=== PATIENT | male | born 1960 | race American Indian/Alaskan Native ===

== ENCOUNTER 2018-03-07 16:16 | Emergency (ER) | payer OTHER ==
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
[2018-03-07] MEDS ORDERED: MOTRIN PO ONE (17:37)
[2018-03-07] MEDS ORDERED: CATAPRES PO ONE (17:38)
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
[2018-03-07 19:15] VITALS: BP 179/90
== END 2018-03-07 19:49 | disposition home or self-care (01) ==
LOC: ED 16:16
DX: S16.1XXA Strain of muscle, fascia and tendon at neck level, initial encounter (principal); M54.5 Low back pain; M54.2 Cervicalgia; I10 Essential (primary) hypertension; E11.9 Type 2 diabetes mellitus without complications; Z79.4 Long term (current) use of insulin; V44.5XXA Car driver injured in collision with heavy transport vehicle or bus in traffic accident, initial encounter; Y93.89 Activity, other specified; Y99.8 Other external cause status; Y92.481 Parking lot as the place of occurrence of the external cause
CPT/HCPCS: 72040; 72100; 99283

== ENCOUNTER 2020-09-20 15:45 | Inpatient (IN) | payer MEDICAID, OTHER ==
--- NOTE | 2020-09-20 17:18 | Event Note ---
ED Screening Note ED Screening Note: SOB that began 4 days ago hx of CHF, afib, has a defibrillator states he has been out of his medication for two months states he is supposed to take entresto, lasix, carvedilol, xarelto, potassium no leg swelling states he has abd distension cannot lay flat no allergies to meds former smoker 3 years ago This initial assessment/diagnostic orders/clinical plan/treatment(s) is/are subject to change based on patients health status, clinical progression and re- assessment by fellow clinical providers in the ED. Further treatment and workup at subsequent clinical providers discretion. Patient/guardian urged not to elope from the ED as their condition may be serious if not clinically assessed and managed. Initial orders include: cp protocol
--- NOTE | 2020-09-20 18:40 | XRay Report ---
CHEST 2 VIEWS INDICATION / CLINICAL INFORMATION: Chest Pain. COMPARISON: None available. FINDINGS: SUPPORT DEVICES: Left subclavian ICD lead HEART / MEDIASTINUM: Borderline enlarged LUNGS / PLEURA: Mild increased interstitial markings No pneumothorax. ADDITIONAL FINDINGS: No significant additional findings. IMPRESSION: 1. Probable mild CHF Signer Name: Stevenson Pedersen MD Signed: 09/20/2020 6:36 PM Workstation Name: [id number]
[2020-09-20 19:23] LABS: Basophils # (Auto) 0.1 K/mm3 (0.0-0.1); Eosinophils # (Auto) 0.1 K/mm3 (0.0-0.4); Hematocrit 43.6 % (35.5-45.6); Hemoglobin 14.5 gm/dl (11.8-15.2); Lymphocytes # (Auto) 1.7 K/mm3 (1.2-5.4); Lymphocytes % (Auto) 17.1 % (13.4-35.0); Mean Corpuscular HGB Conc 33 % (32-34); Mean Corpuscular Volume 85 fl (84-94); Monocytes # (Auto) 1.2 K/mm3 (0.0-0.8); Monocytes % (Auto) 12.1 % (0.0-7.3); Platelet Count 263 K/mm3 (140-440); Red Blood Count 5.13 M/mm3 (3.65-5.03); Red Cell Distribution Width 15.5 % (13.2-15.2)
[2020-09-20 19:33] LABS: INR 1.21 (0.87-1.13)
[2020-09-20 19:34] LABS: Partial Thromboplastin Time 28.5 Sec. (24.2-36.6)
[2020-09-20 19:49] LABS: Albumin 4.3 g/dL (3.9-5); Calcium 9.4 mg/dL (8.4-10.2)
[2020-09-20] MEDS ORDERED: ASPIRIN 325 MG TAB PO ONE (19:54)
[2020-09-20 20:08] LABS: Chol/HDL Ratio 4.56 %
--- NOTE | 2020-09-20 21:39 | Emergency Department Report ---
ED Shortness of Breath HPI - General Chief Complaint: Dyspnea/Respdistress Stated Complaint: SHORTNESS OF BREATH Time Seen by Provider: 09/20/20 17:17 Source: patient Mode of arrival: Wheelchair Limitations: No Limitations - History of Present Illness Initial Comments: 60-year-old male with a past medical history of CHF (intermittently compliant with Lasix), hypertension (intimately compliant with meds), diabetes (not currently on meds), and atrial fibrillation (noncompliant with Xarelto) presents to the hospital with complaints of progressively worsening shortness of breath for approximately 4 days. Present orthopnea, PND, and dyspnea on exertion with 5 to 8 pound weight gain with abdominal distention. Patient feels better since receiving supplemental oxygen in the ED occasional dry cough reported without fever, loss of taste of sense or smell, calf tenderness, chest pain. Patient states he feels like he is retaining fluid and suspects his likely secondary to his intermittent Lasix compliance and the fact that he ran out of several of his medications including Everardo since moving here June 2020. Patient did take 2 doses of Lasix 40 mg today (6 AM and noon) he does not currently have a local doctor. He does not take aspirin daily. Initial triage room air saturation 94% - Related Data Previous Rx's Medication Instructions Recorded Last Taken Type Insulin NPH/Regular [Novolin 70/30] 17 unit SQ BIDDIAB #1 vial 06/23/14 Unknown Rx Lancets [Glucocom Lancets] 1 each MC BID #1 box 06/23/14 Unknown Rx Lisinopril/Hydrochlorothiazide 1 each PO DAILY #30 tablet 06/23/14 Unknown Rx [Zestoretic 10-12.5 mg] Metoprolol [Lopressor TAB] 12.5 mg PO BID #60 tablet 06/23/14 Unknown Rx Syringe and Needle,Insulin,1Ml 1 each MC BID #1 box 06/23/14 Unknown Rx [Advocate Syringes] amLODIPine 10 mg PO DAILY #30 tab 06/23/14 Unknown Rx Amlodipine Besylate [Norvasc] 5 mg PO QDAY 30 Days #30 tablet 03/07/18 Unknown Rx Cyclobenzaprine [Flexeril] 10 mg PO TID PRN #15 tablet 03/07/18 Unknown Rx Ibuprofen [Motrin] 600 mg PO Q8H PRN #12 tablet 03/07/18 Unknown Rx carvediloL [Coreg] 25 mg PO BID 30 Days #60 tablet 03/07/18 Unknown Rx lisinopriL [Zestril TAB] 20 mg PO QDAY 30 Days #30 tablet 03/07/18 Unknown Rx Allergies Allergy/AdvReac Type Severity Reaction Status Date / Time No Known Allergies Allergy Unverified 06/22/14 19:54 ED Review of Systems ROS: Stated complaint: SHORTNESS OF BREATH Other details as noted in HPI Comment: All other systems reviewed and negative ED Past Medical Hx - Past Medical History Previous Medical History?: Yes Hx Hypertension: Yes Hx Congestive Heart Failure: Yes Hx Diabetes: Yes Additional medical history: 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 - Social History Smoking Status: Former Smoker Substance Use Type: None - Medications Home Medications: Home Medications Medication Instructions Recorded Confirmed Last Taken Type Insulin NPH/Regular [Novolin 70/30] 17 unit SQ BIDDIAB #1 vial 06/23/14 Unknown Rx Lancets [Glucocom Lancets] 1 each MC BID #1 box 06/23/14 Unknown Rx Lisinopril/Hydrochlorothiazide 1 each PO DAILY #30 tablet 06/23/14 Unknown Rx [Zestoretic 10-12.5 mg] Metoprolol [Lopressor TAB] 12.5 mg PO BID #60 tablet 06/23/14 Unknown Rx Syringe and Needle,Insulin,1Ml 1 each MC BID #1 box 06/23/14 Unknown Rx [Advocate Syringes] amLODIPine 10 mg PO DAILY #30 tab 06/23/14 Unknown Rx Amlodipine Besylate [Norvasc] 5 mg PO QDAY 30 Days #30 tablet 03/07/18 Unknown Rx Cyclobenzaprine [Flexeril] 10 mg PO TID PRN #15 tablet 03/07/18 Unknown Rx Ibuprofen [Motrin] 600 mg PO Q8H PRN #12 tablet 03/07/18 Unknown Rx carvediloL [Coreg] 25 mg PO BID 30 Days #60 tablet 03/07/18 Unknown Rx lisinopriL [Zestril TAB] 20 mg PO QDAY 30 Days #30 tablet 03/07/18 Unknown Rx ED Physical Exam - General Limitations: No Limitations - Other Other exam information: General: No acute distress Head: Atraumatic Eyes: normal appearance ENT: Moist mucous membranes Neck: Normal appearance, no midline tenderness Chest: Mild bibasilar crackles CV: Regular rate and rhythm Abdomen: Soft, normal bowel sounds, nontender, mild abdominal distention, no rebound or guarding Back: Normal inspection Extremity: Normal inspection, full range of motion, no calf tenderness or leg edema Neuro: Alert O x 3, no facial asymmetry, speech clear, no gross motor sensory deficit Psych: Appropriate behavior Skin: No rash ED Course Vital Signs 09/20/20 09/20/20 21:30 21:33 Pulse Rate 86 Respiratory 20 Rate Blood Pressure 168/107 O2 Sat by Pulse 98 98 Oximetry ED Medical Decision Making - Lab Data Result diagrams: 09/20/20 18:43 09/20/20 18:43 Lab Results 09/20/20 09/20/20 09/20/20 Range/Units 18:43 18:43 18:43 WBC 10.2 (4.5-11.0) K/mm3 RBC 5.13 H (3.65-5.03) M/mm3 Hgb 14.5 (11.8-15.2) gm/dl Hct 43.6 (35.5-45.6) % MCV 85 (84-94) fl MCH 28 (28-32) pg MCHC 33 (32-34) % RDW 15.5 H (13.2-15.2) % Plt Count 263 (140-440) K/mm3 Lymph % (Auto) 17.1 (13.4-35.0) % Hinds % (Auto) 12.1 H (0.0-7.3) % Eos % (Auto) 1.0 (0.0-4.3) % Baso % (Auto) 1.0 (0.0-1.8) % Lymph # (Auto) 1.7 (1.2-5.4) K/mm3 Hinds # (Auto) 1.2 H (0.0-0.8) K/mm3 Eos # (Auto) 0.1 (0.0-0.4) K/mm3 Baso # (Auto) 0.1 (0.0-0.1) K/mm3 Seg Neutrophils % 68.8 (40.0-70.0) % Seg Neutrophils # 7.0 (1.8-7.7) K/mm3 PT 15.3 H (12.2-14.9) Sec. INR 1.21 H (0.87-1.13) APTT 28.5 (24.2-36.6) Sec. Sodium 140 (137-145) mmol/L Potassium 4.0 (3.6-5.0) mmol/L Chloride 101.8 (98-107) mmol/L Carbon Dioxide 26 (22-30) mmol/L Anion Gap 16 mmol/L BUN 27 H (9-20) mg/dL Creatinine 1.7 H (0.8-1.3) mg/dL Estimated GFR 50 ml/min BUN/Creatinine Ratio 16 % Glucose 141 H (75-100) mg/dL Calcium 9.4 (8.4-10.2) mg/dL Total Bilirubin 1.00 (0.1-1.2) mg/dL AST 42 H (5-40) units/L ALT 65 H (7-56) units/L Alkaline Phosphatase 93 (35-129) units/L Troponin T 0.224 H* (0.00-0.029) ng/mL NT-Pro-B Natriuret Pep 3241 H (0-900) pg/mL Total Protein 7.8 (6.3-8.2) g/dL Albumin 4.3 (3.9-5) g/dL Albumin/Globulin Ratio 1.2 % Triglycerides 111 (2-149) mg/dL Cholesterol 219 H (50-199) mg/dL LDL Cholesterol Direct 165 H (50-130) mg/dL HDL Cholesterol 48 (40-59) mg/dL Cholesterol/HDL Ratio 4.56 % - EKG Data -: EKG Interpreted by Me (Left bundle branch block, left atrial enlargement) EKG shows normal: sinus rhythm, ST-T waves (No STEMI) Rate: normal - EKG Data When compared to previous EKG there are: changes noted (New left bundle branch) - Radiology Data Radiology results: report reviewed (cxr: mild chf) - Medical Decision Making 60-year male presents to the hospital with retention of fluid, dyspnea exertion, orthopnea, PND, and noncompliance with medications including diuretics. Physical exam, labs, and x-ray consistent with exacerbation of heart failure. Mild troponin elevation noted with history of mild elevation in troponin in the past as noted by previous lab values from 2013. Mild renal insufficiency noted today. Patient treated with IV Lasix 40 mg and aspirin. He does not endorse ch est pain. Repeat troponin is lower and value than initial and and therefore ongoing ischemic changes unlikely. Patient to be mated to hospital service for treatment with cardiology consultation Critical Care Time: No Critical care attestation.: If time is entered above; I have spent that time in minutes in the direct care of this critically ill patient, excluding procedure time. ED Disposition Clinical Impression: Elevated troponin I level, Chest pain, Uncontrolled hypertension, Renal insufficiency, Noncompliance with medication regimen, CHF exacerbation Disposition: OP ADMIT IP TO THIS HOSP Is pt being admited?: Yes Condition: Stable Instructions: Chest Pain (ED), Hypertension (ED) Time of Disposition: 21:46 (Dr Nowak/June)
[2020-09-20] MEDS ORDERED: FUROSEMIDE 40 MG/4 ML INJ IV ONE (21:43)
[2020-09-20] MEDS ORDERED: NITROGLYCERIN 0.4 MG TAB SUBL SL PRN (22:01)
[2020-09-20] MEDS ORDERED: MORPHINE 2 MG/1 ML INJ IV PRN (22:01)
[2020-09-20] MEDS ORDERED: ACETAMINOPHEN 325 MG TAB PO PRN (22:03)
[2020-09-20] MEDS ORDERED: DEXTROSE 50% IN WATER (25GM) 50 ML SYRINGE IV PRN (22:03)
[2020-09-20] MEDS ORDERED: oxyCODONE /ACETAMINOPHEN 5-325MG TAB PO PRN (22:03)
[2020-09-20] MEDS ORDERED: ALBUTEROL 2.5 MG/3 ML NEBU IH PRN (22:03)
--- NOTE | 2020-09-20 23:30 | History and Physical Report ---
History of Present Illness Date of examination: 09/20/20 Date of admission: 09/20/20 22:03 Chief complaint: abodominal swelling, sob History of present illness: 60-year-old -[place]ian male with history of A. fib, CHF, hypertension, and diabetes who presents to [facility] ED with complaints of abdominal swelling and shortness of breath x4 days. Patient states that he has gained approximately 5 to 8 pounds over the past week. He is unable to lay flat or walk up a flight of stairs without getting short of breath. Endorses abdominal distention, orthopnea and PND. Patient thinks his recent weight gain, abdominal distention, and dyspnea is due fluid buildup. Admits to having CHF, and has been off his meds since June 2020. Patient states his noncompliance with meds is due to insurance issues. His doctor is located in [place] and when he attempted to get a refill of his heart failure meds at a local [facility] here in [place] was told that he needs to return to the [facility] in order to fill the prescription. 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 Denies fever, chills, chest pain, headache, sore throat, nausea, vomiting, diarrhea, constipation, cough, hemoptysis, hematuria, melena, or recent sick c ontacts Past History Past Medical History: atrial fib, diabetes, heart failure, hypertension, other (DJD) Past Surgical History: No surgical history Social history: , Lives alone, full code. denies: smoking, alcohol abuse Family history: hypertension Medications and Allergies Allergies Allergy/AdvReac Type Severity Reaction Status Date / Time No Known Allergies Allergy Unverified 06/22/14 19:54 Home Medications Medication Instructions Recorded Confirmed Last Taken Type Insulin NPH/Regular [Novolin 70/30] 17 unit SQ BIDDIAB #1 vial 06/23/14 Unknown Rx Lancets [Glucocom Lancets] 1 each MC BID #1 box 06/23/14 Unknown Rx Lisinopril/Hydrochlorothiazide 1 each PO DAILY #30 tablet 06/23/14 Unknown Rx [Zestoretic 10-12.5 mg] Metoprolol [Lopressor TAB] 12.5 mg PO BID #60 tablet 06/23/14 Unknown Rx Syringe and Needle,Insulin,1Ml 1 each MC BID #1 box 06/23/14 Unknown Rx [Advocate Syringes] amLODIPine 10 mg PO DAILY #30 tab 06/23/14 Unknown Rx Amlodipine Besylate [Norvasc] 5 mg PO QDAY 30 Days #30 tablet 03/07/18 Unknown Rx Cyclobenzaprine [Flexeril] 10 mg PO TID PRN #15 tablet 03/07/18 Unknown Rx Ibuprofen [Motrin] 600 mg PO Q8H PRN #12 tablet 03/07/18 Unknown Rx carvediloL [Coreg] 25 mg PO BID 30 Days #60 tablet 03/07/18 Unknown Rx lisinopriL [Zestril TAB] 20 mg PO QDAY 30 Days #30 tablet 03/07/18 Unknown Rx Active Meds: Active Medications Acetaminophen (Acetaminophen 325 Mg Tab) 650 mg PO Q4H PRN PRN Reason: Pain MILD(1-3)/Fever >100.5/OTT Albuterol (Albuterol 2.5 Mg/3 Ml Nebu) 2.5 mg IH Q3HRT PRN PRN Reason: Shortness Of Breath Albuterol/Ipratropium (Ipratropium/Albuterol Sulfate 3 Ml Ampul.Neb) 1 ampul IH Q6HRT WAYNE Aspirin (Aspirin 81 Mg Tab Chew) 81 mg PO QDAY [facility] Dextrose (Dextrose 50% In Water (25gm) 50 Ml Syringe) 0 ml IV Q30MIN PRN; Protocol PRN Reason: Hypoglycemia Docusate Sodium (Docusate Sodium 100 Mg Cap) 100 mg PO BID [facility] Enoxaparin Sodium (Enoxaparin 40 Mg/0.4 Ml Inj) 40 mg SUB-Q QDAY [facility] Furosemide (Furosemide 40 Mg/4 Ml Inj) 40 mg IV BID@0600,1800 [facility] Insulin Human Lispro (Insulin Lispro 100 Unit/Ml) 0 unit SUB-Q ACHS WAYNE; Protocol Lisinopril (Lisinopril 20 Mg Tab) 20 mg PO QDAY [facility] Metoprolol Tartrate (Metoprolol Tartrate 25 Mg Tab) 12.5 mg PO BID [facility] Morphine Sulfate (Morphine 2 Mg/1 Ml Inj) 2 mg IV Q5MIN PRN PRN Reason: Chest Pain unrelieved by NTG Nitroglycerin (Nitroglycerin 0.4 Mg Tab Subl) 0.4 mg SL .Q5MIN PRN PRN Reason: Chest Pain Ondansetron HCl (Ondansetron 4 Mg/2 Ml Inj) 4 mg IV Q6H PRN PRN Reason: Nausea And Vomiting Oxycodone/Acetaminophen (Oxycodone /Acetaminophen 5-325mg Tab) 1 tab PO Q6H PRN PRN Reason: Pain, Moderate (4-6) Potassium Chloride (Potassium Chloride Er 10 Meq Tab) 10 meq PO QDAY WAYNE Sodium Chloride (Sodium Chloride 0.9% 10 Ml Flush Syringe) 10 ml IV BID WAYNE Sodium Chloride (Sodium Chloride 0.9% 10 Ml Flush Syringe) 10 ml IV PRN PRN PRN Reason: LINE FLUSH Review of Systems All systems: negative (As noted in HPI) Exam - Physical Exam Narrative exam: Physical exam General appearance: Present: No acute distress, alert and oriented 3, adult male - EENT Eyes: Present: PERRL, EOM intact ENT: hearing intact, normal dentition - Neck Neck: Present: supple, normal ROM - Respiratory Respiratory effort: slightly labored with activity, on supplemental O2 Respiratory: fine bibasilar crackles - Cardiovascular Heart rate: 90 (bpm) Rhythm: Sinus Heart Sounds: Present: S1 & S2. Absent: rub, click - Extremities Extremities: no ischemia, pulses intact, - Peripheral Assessment Peripheral Pulses: within normal limits - Abdominal General gastrointestinal: edema to LLQ and RLQ, non-tender, normal bowel sounds - Integumentary Integumentary: Present: warm, dry - Musculoskeletal Musculoskeletal: Able to move all extremities -Neurological Neurological: CN II-XII intact - Psychiatric Psychiatric: cooperative - Constitutional Vitals: Temp Pulse Resp BP Pulse Ox 98 F 73 20 167/98 97 09/20/20 22:00 09/20/20 22:00 09/20/20 22:00 09/20/20 22:00 09/20/20 22:00 HEART Score - HEART Score History: Slightly suspicious EKG: Normal Age: 45-65 Risk factors: 1-2 risk factors Troponin: Troponin T 0.217 ng/mL (0.00-0.029) H* 09/20/20 20:36 Troponin: 1-3x normal limit HEART Score: 3 Results - Labs CBC & Chem 7: 09/20/20 18:43 09/20/20 18:43 Labs: Laboratory Last Values WBC 10.2 K/mm3 (4.5-11.0) 09/20/20 18:43 RBC 5.13 M/mm3 (3.65-5.03) H 09/20/20 18:43 Hgb 14.5 gm/dl (11.8-15.2) 09/20/20 18:43 Hct 43.6 % (35.5-45.6) 09/20/20 18:43 MCV 85 fl (84-94) 09/20/20 18:43 MCH 28 pg (28-32) 09/20/20 18:43 MCHC 33 % (32-34) 09/20/20 18:43 RDW 15.5 % (13.2-15.2) H 09/20/20 18:43 Plt Count 263 K/mm3 (140-440) 09/20/20 18:43 Lymph % (Auto) 17.1 % (13.4-35.0) 09/20/20 18:43 Cook % (Auto) 12.1 % (0.0-7.3) H 09/20/20 18:43 Eos % (Auto) 1.0 % (0.0-4.3) 09/20/20 18:43 Baso % (Auto) 1.0 % (0.0-1.8) 09/20/20 18:43 Lymph # (Auto) 1.7 K/mm3 (1.2-5.4) 09/20/20 18:43 Cook # (Auto) 1.2 K/mm3 (0.0-0.8) H 09/20/20 18:43 Eos # (Auto) 0.1 K/mm3 (0.0-0.4) 09/20/20 18:43 Baso # (Auto) 0.1 K/mm3 (0.0-0.1) 09/20/20 18:43 Seg Neutrophils % 68.8 % (40.0-70.0) 09/20/20 18:43 Seg Neutrophils # 7.0 K/mm3 (1.8-7.7) 09/20/20 18:43 PT 15.3 Sec. (12.2-14.9) H 09/20/20 18:43 INR 1.21 (0.87-1.13) H 09/20/20 18:43 APTT 28.5 Sec. (24.2-36.6) 09/20/20 18:43 Sodium 140 mmol/L (137-145) 09/20/20 18:43 Potassium 4.0 mmol/L (3.6-5.0) 09/20/20 18:43 Chloride 101.8 mmol/L (98-107) 09/20/20 18:43 Carbon Dioxide 26 mmol/L (22-30) 09/20/20 18:43 Anion Gap 16 mmol/L 09/20/20 18:43 BUN 27 mg/dL (9-20) H 09/20/20 18:43 Creatinine 1.7 mg/dL (0.8-1.3) H 09/20/20 18:43 Estimated GFR 50 ml/min 09/20/20 18:43 BUN/Creatinine Ratio 16 % 09/20/20 18:43 Glucose 141 mg/dL (75-100) H 09/20/20 18:43 Calcium 9.4 mg/dL (8.4-10.2) 09/20/20 18:43 Total Bilirubin 1.00 mg/dL (0.1-1.2) 09/20/20 18:43 AST 42 units/L (5-40) H 09/20/20 18:43 ALT 65 units/L (7-56) H 09/20/20 18:43 Alkaline Phosphatase 93 units/L (35-129) 09/20/20 18:43 Troponin T 0.217 ng/mL (0.00-0.029) H* 09/20/20 20:36 NT-Pro-B Natriuret Pep 3241 pg/mL (0-900) H 09/20/20 18:43 Total Protein 7.8 g/dL (6.3-8.2) 09/20/20 18:43 Albumin 4.3 g/dL (3.9-5) 09/20/20 18:43 Albumin/Globulin Ratio 1.2 % 09/20/20 18:43 Triglycerides 111 mg/dL (2-149) 09/20/20 18:43 Cholesterol 219 mg/dL (50-199) H 09/20/20 18:43 LDL Cholesterol Direct 165 mg/dL (50-130) H 09/20/20 18:43 HDL Cholesterol 48 mg/dL (40-59) 09/20/20 18:43 Cholesterol/HDL Ratio 4.56 % 09/20/20 18:43 - Imaging and Cardiology Chest x-ray: report reviewed (Impression: Probable mild CHF ), image reviewed Duron/IV: IV Catheter Type [Right INT / Saline Lock Antecubital] Assessment and Plan Assessment and plan: Acute Exacerbation CHF -History of CHF noncompliant with meds due to insurance issues -[place] [address] -Troponin slightly elevated at 0.217, will trend -CXR shows mild CHF -Continue IV Lasix twice daily -On aspirin, RENEE, BB -Echo pending -Cardiology consulted TONI -Avoid nephrotoxic agents -Renal dose all meds -Monitor Hypoxia -Likely due to fluid overload/CHF exacerbation -No baseline home oxygen requirements -Monitor saturations -Supplemental oxygen as needed -Wean as tolerated DM -POC BG monitoring -SSI coverage prn -HgbA1C pending HTN -Monitor BP -Resume home hypertensive meds -IV hydralazine when necessary History of A. fib -On beta-luis armando -We will resume Xarelto -On continuous telemetry monitoring DVT PPX -On Lovenox Advance Directives: No VTE prophylaxis?: Chemical, Mechanical Plan of care discussed with patient/family: Yes
[2020-09-21] MEDS: IPRATROPIUM/ALBUTEROL SULFATE 3 ML AMPUL.NEB IH SCH ×4 (03:18→21:48)
[2020-09-21 05:34] LABS: Basophils # (Auto) 0.1 K/mm3 (0.0-0.1); Basophils % (Auto) 0.9 % (0.0-1.8); Eosinophils # (Auto) 0.2 K/mm3 (0.0-0.4); Eosinophils % (Auto) 2.4 % (0.0-4.3); Hematocrit 42.3 % (35.5-45.6); Hemoglobin 13.8 gm/dl (11.8-15.2); Lymphocytes # (Auto) 2.2 K/mm3 (1.2-5.4); Mean Corpuscular HGB Conc 33 % (32-34); Mean Corpuscular Volume 85 fl (84-94); Monocytes # (Auto) 1.4 K/mm3 (0.0-0.8); Platelet Count 228 K/mm3 (140-440); Red Blood Count 4.97 M/mm3 (3.65-5.03); Red Cell Distribution Width 15.4 % (13.2-15.2)
[2020-09-21 05:48] LABS: Calcium 8.6 mg/dL (8.4-10.2)
[2020-09-21] MEDS: FUROSEMIDE 40 MG/4 ML INJ IV SCH (06:39)
[2020-09-21] MEDS: INSULIN LISPRO 100 UNIT/ML SUB-Q SCH ×3 (08:01→22:30)
[2020-09-21] MEDS ORDERED: CYCLOBENZAPRINE 10 MG TAB PO PRN (09:00)
[2020-09-21] MEDS ORDERED: LISINOPRIL 20 MG TAB PO SCH (10:00)
[2020-09-21] MEDS ORDERED: ENOXAPARIN 40 MG/0.4 ML INJ SUB-Q SCH (10:00)
[2020-09-21] MEDS ORDERED: METOPROLOL TARTRATE 25 MG TAB PO SCH (10:00)
[2020-09-21] MEDS ORDERED: RIVAROXABAN 20 MG TAB PO SCH (10:00)
--- NOTE | 2020-09-21 10:00 | Consultation ---
History of Present Illness Consult date: 09/21/20 Requesting physician: FUENTES BALLARD Consult reason: congestive heart failure, elevated troponin History of present illness: The pt is a 60-year-old male with a past medical history of reported HFrEF, NICMP, nonobstructive CAD via [facility] in [place], AICD in situ (placed in 2018 in [place]), HTN, DM, paroxysmal atrial fibrillation (noncompliant with home Xarelto). He recently relocated to [place]. He presented with c/o progressively worsening SOB, MURPHY, orthopnea, PND, abdominal swelling and 5 to 8 pound weight gain for 4 days prior to arrival. He admits that he has not been compliant with his home medications (which include coreg, Entresto, lasix) for 4 months due to relocating to [place]. He denies any chest pain, palpitations, n/v, diaphoresis, dizziness or syncope. Past History Past Medical History: atrial fib, CAD, diabetes, heart failure, hypertension, other (DJD) Past Surgical History: No surgical history Social history: , Lives alone, smoking (former - quit 3 years ago), full code. denies: alcohol abuse Family history: hypertension Medications and Allergies Allergies Allergy/AdvReac Type Severity Reaction Status Date / Time No Known Allergies Allergy Unverified 06/22/14 19:54 Home Medications Medication Instructions Recorded Confirmed Last Taken Type Insulin NPH/Regular [Novolin 70/30] 17 unit SQ BIDDIAB #1 vial 06/23/14 Unknown Rx Lancets [Glucocom Lancets] 1 each MC BID #1 box 06/23/14 Unknown Rx Lisinopril/Hydrochlorothiazide 1 each PO DAILY #30 tablet 06/23/14 Unknown Rx [Zestoretic 10-12.5 mg] Metoprolol [Lopressor TAB] 12.5 mg PO BID #60 tablet 06/23/14 Unknown Rx Syringe and Needle,Insulin,1Ml 1 each MC BID #1 box 06/23/14 Unknown Rx [Advocate Syringes] amLODIPine 10 mg PO DAILY #30 tab 06/23/14 Unknown Rx Amlodipine Besylate [Norvasc] 5 mg PO QDAY 30 Days #30 tablet 03/07/18 Unknown Rx Cyclobenzaprine [Flexeril] 10 mg PO TID PRN #15 tablet 07/12/18 Unknown Rx Ibuprofen [Motrin] 600 mg PO Q8H PRN #12 tablet 03/07/18 Unknown Rx carvediloL [Coreg] 25 mg PO BID 30 Days #60 tablet 03/07/18 Unknown Rx lisinopriL [Zestril TAB] 20 mg PO QDAY 30 Days #30 tablet 03/07/18 Unknown Rx Active Meds: Active Medications Acetaminophen (Acetaminophen 325 Mg Tab) 650 mg PO Q4H PRN PRN Reason: Pain MILD(1-3)/Fever >100.5/OTT Albuterol (Albuterol 2.5 Mg/3 Ml Nebu) 2.5 mg IH Q3HRT PRN PRN Reason: Shortness Of Breath Albuterol/Ipratropium (Ipratropium/Albuterol Sulfate 3 Ml Ampul.Neb) 1 ampul IH Q6HRT [facility] Last Admin: 09/21/20 08:11 Dose: Not Given Documented by: Aspirin (Aspirin 81 Mg Tab Chew) 81 mg PO QDAY [facility] Cyclobenzaprine HCl (Cyclobenzaprine 10 Mg Tab) 10 mg PO TID PRN PRN Reason: Muscle Spasm Dextrose (Dextrose 50% In Water (25gm) 50 Ml Syringe) 0 ml IV Q30MIN PRN; Protocol PRN Reason: Hypoglycemia Docusate Sodium (Docusate Sodium 100 Mg Cap) 100 mg PO BID [facility] Furosemide (Furosemide 40 Mg/4 Ml Inj) 40 mg IV BID@0600,1800 [facility] Last Admin: 09/21/20 06:39 Dose: 40 mg Documented by: Insulin Human Lispro (Insulin Lispro 100 Unit/Ml) 0 unit SUB-Q ACHS [facility]; Protocol Lisinopril (Lisinopril 20 Mg Tab) 20 mg PO QDAY [facility] Metoprolol Tartrate (Metoprolol Tartrate 25 Mg Tab) 12.5 mg PO BID [facility] Morphine Sulfate (Morphine 2 Mg/1 Ml Inj) 2 mg IV Q5MIN PRN PRN Reason: Chest Pain unrelieved by NTG Nitroglycerin (Nitroglycerin 0.4 Mg Tab Subl) 0.4 mg SL .Q5MIN PRN PRN Reason: Chest Pain Ondansetron HCl (Ondansetron 4 Mg/2 Ml Inj) 4 mg IV Q6H PRN PRN Reason: Nausea And Vomiting Oxycodone/Acetaminophen (Oxycodone /Acetaminophen 5-325mg Tab) 1 tab PO Q6H PRN PRN Reason: Pain, Moderate (4-6) Potassium Chloride (Potassium Chloride Er 10 Meq Tab) 10 meq PO QDAY WAYNE Rivaroxaban (Rivaroxaban 20 Mg Tab) 20 mg PO QDAY [facility]; Protocol Sodium Chloride (Sodium Chloride 0.9% 10 Ml Flush Syringe) 10 ml IV BID WAYNE Sodium Chloride (Sodium Chloride 0.9% 10 Ml Flush Syringe) 10 ml IV PRN PRN PRN Reason: LINE FLUSH Review of Systems Constitutional: weight gain, no fever, no chills, no sweats Ears, nose, mouth and throat: no ear pain, no nose pain, no sinus pressure, no sinus pain Cardiovascular: orthopnea, edema, shortness of breath, dyspnea on exertion, paroxysmal nocturnal dyspnea, decreased exercise tolerance, no chest pain, no palpitations, no rapid/irregular heart beat, no syncope, no lightheadedness Respiratory: shortness of breath, dyspnea on exertion, no cough, no congestion, no wheezing, no pain on inspiration Gastrointestinal: other (abdominal swelling), no abdominal pain, no nausea, no vomiting, no diarrhea, no constipation, no change in bowel habits Genitourinary Male: no dysuria, no hematuria, no flank pain, no discharge, no urinary frequency, no urinary hesitancy Musculoskeletal: no neck stiffness, no neck pain, no shooting arm pain, no arm numbness/tingling, no low back pain, no shooting leg pain Integumentary: no rash, no pruritis, no redness, no sores, no wounds Neurological: no head injury, no paralysis, no weakness, no parathesias, no numbness, no tingling, no seizures, no syncope Psychiatric: no anxiety Endocrine: no cold intolerance, no heat intolerance Hematologic/Lymphatic: no easy bruising Allergic/Immunologic: no urticaria Physical Examination Vital Signs Pulse Resp BP Pulse Ox 86 20 168/107 98 09/20/20 21:30 09/20/20 21:30 09/20/20 21:30 09/20/20 21:30 General appearance: no acute distress HEENT: Positive: PERRL, Normocephaly, Mucus Membranes Moist Neck: Positive: neck supple, trachea midline Cardiac: Positive: Reg Rate and Rhythm, S1/S2 Lungs: Positive: Decreased Breath Sounds Neuro: Positive: Grossly Intact Abdomen: Positive: Distended. Negative: Tender Skin: Negative: Rash Musculoskeletal: No Pain Extremities: Absent: edema Results 09/21/20 05:03 09/21/20 05:03 Cardiac Enzymes 09/20/20 Range/Units 18:43 AST 42 H (5-40) units/L Coagulation 09/20/20 Range/Units 18:43 PT 15.3 H (12.2-14.9) Sec. INR 1.21 H (0.87-1.13) APTT 28.5 (24.2-36.6) Sec. Lipids 09/20/20 Range/Units 18:43 Triglycerides 111 (2-149) mg/dL Cholesterol 219 H (50-199) mg/dL HDL Cholesterol 48 (40-59) mg/dL Cholesterol/HDL Ratio 4.56 % CBC 09/20/20 09/21/20 Range/Units 18:43 05:03 WBC 10.2 9.2 (4.5-11.0) K/mm3 RBC 5.13 H 4.97 (3.65-5.03) M/mm3 Hgb 14.5 13.8 (11.8-15.2) gm/dl Hct 43.6 42.3 (35.5-45.6) % Plt Count 263 228 (140-440) K/mm3 Lymph # (Auto) 1.7 2.2 (1.2-5.4) K/mm3 [place] # (Auto) 1.2 H 1.4 H (0.0-0.8) K/mm3 Eos # (Auto) 0.1 0.2 (0.0-0.4) K/mm3 Baso # (Auto) 0.1 0.1 (0.0-0.1) K/mm3 Comprehensive Metabolic Panel 09/20/20 09/21/20 Range/Units 18:43 05:03 Sodium 140 142 (137-145) mmol/L Potassium 4.0 3.6 (3.6-5.0) mmol/L Chloride 101.8 104.9 (98-107) mmol/L Carbon Dioxide 26 23 (22-30) mmol/L BUN 27 H 30 H (9-20) mg/dL Creatinine 1.7 H 1.6 H (0.8-1.3) mg/dL Glucose 141 H 131 H (75-100) mg/dL Calcium 9.4 8.6 (8.4-10.2) mg/dL AST 42 H (5-40) units/L ALT 65 H (7-56) units/L Alkaline Phosphatase 93 (35-129) units/L Total Protein 7.8 (6.3-8.2) g/dL Albumin 4.3 (3.9-5) g/dL - Imaging and Cardiology Echo: report reviewed EKG: report reviewed, image reviewed EKG interpretations - Telemetry EKG Rhythm: Sinus Rhythm - EKG Sinus rhythms and dysrhythmias: sinus rhythm AV and intraventricular conduction: intraventricular conducti Assessment and Plan tte reviewed - EF 20-25%, mild LVH, restrictive diastolic filling, pacemaker wire in RV, mod MR, mod pulm HTN with RVSP 48mmHg. tele reviewed - 16 beat run NSVT noted overnight, pt asymptomatic. Pt reports h/o NICMP, HFrEF, AICD in situ, nonobstructive CAD. He is noted to have elevated Eryn which appear c/w NSTEMI type II. Cont ASA and statin. Agree with IV diuretics. Resume home coreg, hold ACEI/ARB at this time in setting of renal insufficiency. Will optimize volume status and plan for ischemic evaluation (stress test v. LHC) in setting of CMP, CAD, NSVT, elevated Eryn once medically stabilized. Hold home Xarelto and initiate heparin gtt in the interim. Will follow. The patient has been seen in conjunction with Dr. Paty Powell who agrees with the assessment and plan of care. - Patient Problems (1) Acute HFrEF (heart failure with reduced ejection fraction) Current Visit: Yes Status: Acute (2) NICM (nonischemic cardiomyopathy) Current Visit: Yes Status: Chronic (3) Nonobstructive atherosclerosis of coronary artery Current Visit: Yes Status: Chronic (4) Uncontrolled hypertension Current Visit: Yes Status: Chronic (5) Diabetes Current Visit: Yes Status: Chronic (6) Paroxysmal atrial fibrillation Current Visit: Yes Status: Chronic (7) TONI (acute kidney injury) Current Visit: Yes Status: Acute (8) NSTEMI (non-ST elevated myocardial infarction) Current Visit: Yes Status: Acute Plan to address problem: suspect type II (9) Noncompliance with medication regimen Current Visit: Yes Status: Chronic (10) NSVT (nonsustained ventricular tachycardia) Current Visit: Yes Status: Acute
[2020-09-21] MEDS: POTASSIUM CHLORIDE ER 10 MEQ TAB PO SCH (10:18)
[2020-09-21] MEDS: DOCUSATE SODIUM 100 MG CAP PO SCH ×2 (10:18→22:30)
[2020-09-21] MEDS: ASPIRIN 81 MG TAB CHEW PO SCH (10:18)
[2020-09-21] MEDS ORDERED: HEPARIN 10,000 UNITS/10 ML VIAL IV PRN (10:50)
[2020-09-21] MEDS ORDERED: HEPARIN 10,000 UNITS/10 ML VIAL IV ONE (11:00)
[2020-09-21] MEDS ORDERED: FLU VACC QUAD 2020-2021 (6 months +)/PF 60 0.5 ML SYRINGE IM ONE (12:00)
[2020-09-21] MEDS: HEPARIN/ 0.45% NACL DRIP 25,000 UNIT/500 ML BAG IV SCH (12:33)
--- NOTE | 2020-09-21 13:19 | Progress Note ---
Assessment and Plan Assessment and plan: Acute congestive heart failure exacerbation -Secondary to nonischemic cardiomyopathy -s/p AICD -09/20 proBNP [id number] -Cardiology consulted, appreciate recommendations -09/20 CXR shows mild congestive heart failure -IV diuretics, aspirin, RENEE, beta-luis armando -09/21 echocardiogram pending Hypoxia -Presented with shortness of breath -Supplemental oxygen as needed -SPO2 monitoring -Likely secondary to acute CHF exacerbation Acute kidney injury -Patient presented with a creatinine/BUN of 1.7/ -On last visit 05/2014 BUN/creatinine 14/1.4 -09/21 BUN/creatinine 30/1.6 -Trend BMP -Strict intake and output -Avoid nephrotoxic medications -Renally dose medications -Daily weights -Consider nephrology consult if not improving Transaminitis -Admit AST 42, ALT 65 -Likely increased in the setting of acute CHF exacerbation -Trend LFTs Elevated troponin -Troponin 0.224, 0.217, 0.244 -Cardiology consulted -As needed morphine pain and nitroglycerin Paroxysmal Atrial Fibrillation -Home medications include Entresto, Lasix, carvedilol, Xarelto, potassium -Rate control with BB -Anticoagulation with heparin drip Diabetes mellitus -09/21 hemoglobin A1c 9.3 -Per patient he has not been taking medications and attempts to control blood glucose by diet -Patient does not have a blood glucose monitor at home -SSI -Accu-Cheks AC at bedtime -CC cardiac diet Hypertension -Home medications include Entresto, Lasix, carvedilol, Xarelto, potassium -Blood pressure monitor per protocol -Hydralazine for SBP greater than 160 as needed CAD -Statin therapy Noncompliance -Patient stated he has been out of his medications for approximately 2 months due to relocation -Patient counseled on importance of compliance with medical treatment and mainting a PCP -CM consulted for social issues DVT prophylaxis -GI prophylaxis -Systemic anticoagulation with heparin drip -SCDs to bilateral result in bed History Interval history: The pt is a 60-year-old male with Congestive heart failure, nonobstructive CAD via [facility] in [place], AICD in situ (placed in 2017 in [place]), HTN, DM, p aroxysmal atrial fibrillation (noncompliant with home Xarelto) and with noncomplience d/t to relocation who presented with progressively worsening SOB, MURPHY, orthopnea, PND, abdominal swelling and 5 to 8 pound weight gain for 4 days prior to arrival on 09/20. Patient was admitted to the hospital service with acute exacerbation of congestive heart failure, elevated troponins and acute kidney injury. Cardiology was consulted. This morning patient had an echocardiogram and at the time of examination is on supplemental oxygenation but states that he feels much better. Patient was seen in conjunction with cardiology. Hospitalist Physical - Constitutional Vitals: Temp Pulse Resp BP Pulse Ox 98.2 F 73 18 126/72 96 09/21/20 08:54 09/21/20 08:54 09/21/20 08:54 09/21/20 03:49 09/21/20 08:54 General appearance: Present: no acute distress - EENT Eyes: Present: PERRL, EOM intact ENT: hearing intact, clear oral mucosa, dentition normal - Neck Neck: Present: normal ROM - Respiratory Respiratory effort: normal Respiratory: bilateral: other (slight crackles) - Cardiovascular Rhythm: regularly irregular Heart Sounds: Present: S1 & S2. Absent: systolic murmur, diastolic murmur - Extremities Extremities: no ischemia, pulses intact, pulses symmetrical, No edema, normal temperature, normal color, Full ROM Peripheral Pulses: within normal limits - Abdominal General gastrointestinal: soft, non-tender, non-distended, normal bowel sounds - Integumentary Integumentary: Present: clear, warm, dry - Psychiatric Psychiatric: appropriate mood/affect, cooperative - Neurologic Neurologic: CNII-XII intact, no focal deficits, moves all extremities - Allied Health Allied health notes reviewed: nursing HEART Score - HEART Score EKG: Normal Age: 45-65 Risk factors: 1-2 risk factors Troponin: Troponin T 0.244 ng/mL (0.00-0.029) H* 09/21/20 05:03 Troponin: 1-3x normal limit Results - Labs CBC & Chem 7: 09/21/20 05:03 09/21/20 05:03 Labs: Laboratory Last Values WBC 9.2 K/mm3 (4.5-11.0) 09/21/20 05:03 RBC 4.97 M/mm3 (3.65-5.03) 09/21/20 05:03 Hgb 13.8 gm/dl (11.8-15.2) 09/21/20 05:03 Hct 42.3 % (35.5-45.6) 09/21/20 05:03 MCV 85 fl (84-94) 09/21/20 05:03 MCH 28 pg (28-32) 09/21/20 05:03 MCHC 33 % (32-34) 09/21/20 05:03 RDW 15.4 % (13.2-15.2) H 09/21/20 05:03 Plt Count 228 K/mm3 (140-440) 09/21/20 05:03 Lymph % (Auto) 24.0 % (13.4-35.0) 09/21/20 05:03 Chambers % (Auto) 15.0 % (0.0-7.3) H 09/21/20 05:03 Eos % (Auto) 2.4 % (0.0-4.3) 09/21/20 05:03 Baso % (Auto) 0.9 % (0.0-1.8) 09/21/20 05:03 Lymph # (Auto) 2.2 K/mm3 (1.2-5.4) 09/21/20 05:03 Chambers # (Auto) 1.4 K/mm3 (0.0-0.8) H 09/21/20 05:03 Eos # (Auto) 0.2 K/mm3 (0.0-0.4) 09/21/20 05:03 Baso # (Auto) 0.1 K/mm3 (0.0-0.1) 09/21/20 05:03 Seg Neutrophils % 57.7 % (40.0-70.0) 09/21/20 05:03 Seg Neutrophils # 5.3 K/mm3 (1.8-7.7) 09/21/20 05:03 PT 15.3 Sec. (12.2-14.9) H 09/20/20 18:43 INR 1.21 (0.87-1.13) H 09/20/20 18:43 APTT 28.5 Sec. (24.2-36.6) 09/20/20 18:43 Sodium 142 mmol/L (137-145) 09/21/20 05:03 Potassium 3.6 mmol/L (3.6-5.0) 09/21/20 05:03 Chloride 104.9 mmol/L (98-107) 09/21/20 05:03 Carbon Dioxide 23 mmol/L (22-30) 09/21/20 05:03 Anion Gap 18 mmol/L 09/21/20 05:03 BUN 30 mg/dL (9-20) H 09/21/20 05:03 Creatinine 1.6 mg/dL (0.8-1.3) H 09/21/20 05:03 Estimated GFR 54 ml/min 09/21/20 05:03 BUN/Creatinine Ratio 19 % 09/21/20 05:03 Glucose 131 mg/dL (75-100) H 09/21/20 05:03 POC Glucose 215 mg/dL (70-105) H 09/21/20 10:42 Hemoglobin A1c 9.3 % (4-6) H 09/21/20 05:03 Calcium 8.6 mg/dL (8.4-10.2) 09/21/20 05:03 Total Bilirubin 1.00 mg/dL (0.1-1.2) 09/20/20 18:43 AST 42 units/L (5-40) H 09/20/20 18:43 ALT 65 units/L (7-56) H 09/20/20 18:43 Alkaline Phosphatase 93 units/L (35-129) 09/20/20 18:43 Troponin T 0.244 ng/mL (0.00-0.029) H* 09/21/20 05:03 NT-Pro-B Natriuret Pep 3241 pg/mL (0-900) H 09/20/20 18:43 Total Protein 7.8 g/dL (6.3-8.2) 09/20/20 18:43 Albumin 4.3 g/dL (3.9-5) 09/20/20 18:43 Albumin/Globulin Ratio 1.2 % 09/20/20 18:43 Triglycerides 111 mg/dL (2-149) 09/20/20 18:43 Cholesterol 219 mg/dL (50-199) H 09/20/20 18:43 LDL Cholesterol Direct 165 mg/dL (50-130) H 09/20/20 18:43 HDL Cholesterol 48 mg/dL (40-59) 09/20/20 18:43 Cholesterol/HDL Ratio 4.56 % 09/20/20 18:43 - Diagnostic Impressions Diagnostic Impressions: Echocardiogram 09/20/20 22:02 Transthoracic Echocardiogram Indication: Dyspnea BP: 126/72 HR: 75 Conclusions *The left ventricular chamber size is severely dilated. *Mild concentric left ventricular hypertrophy is observed. *Global left ventricular systolic function is severely decreased. *The estimated ejection fraction is 20-25%. *The left ventricular diastolic filling pattern is restrictive. *A pacemaker wire is visualized in the right ventricle. *There is moderate mitral regurgitation. *There is evidence of moderate pulmonary hypertension. *There is no pericardial effusion. Findings Left Ventricle: The left ventricular chamber size is severely dilated. Mild concentric left ventricular hypertrophy is observed. Global left ventricular systolic function is severely decreased. The estimated ejection fraction is 20-25%. The left ventricular diastolic filling pattern is restrictive. Right Ventricle: The right ventricular cavity size is normal. The right ventricular global systolic function is mildly reduced. A pacemaker wire is visualized in the right ventricle. Right Atrium: The right atrial cavity size is normal. A pacemaker wire is visualized in the right atrium. Aortic Valve: Mild aortic leaflet calcification is visualized. There is no evidence of aortic regurgitation. There is no evidence of aortic stenosis. Mitral Valve: The mitral valve leaflets are mildly thickened. There is moderate mitral regurgitation. Tricuspid Valve: The tricuspid valve leaflets are normal. There is mild tricuspid regurgitation. The right ventricular systolic pressure is calculated at 48 mmHg. There is evidence of moderate pulmonary hypertension. Pulmonic Valve: The pulmonic valve appears normal. There is trace pulmonic regurgitation. Pericardium: There is no pericardial effusion. Aorta: The aorta appears normal. Venous: The inferior vena cava appears normal. Measurements Chambers 2D Name Value Normal Range IVSd (2D) 1.11 cm (0.6 - 1.1) LVPWd (2D) 1.14 cm (0.6 - 1.1) LVIDd (2D) 6.6 cm (3.7 - 5.6) LVIDs (2D) 5.98 cm (2 - 3.8) LV FS (2D) 9.38 % - EF Teichholz (2D) 20.09 % - Ao root diameter (2D) 3 cm (2 - 3.7) Volumes/Mass Name Value Normal Range LA ESV SP 4CH (A/L) 66.11 ml - LA ESV SP 2CH (A/L) 82.67 ml - LA ESV BP (A/L) 77.05 ml - LA ESV BP (A/L) index 35.84 ml/m2 - LA ESV SP 4CH (MOD) 62.68 ml - LA ESV SP 2CH (MOD) 79.67 ml - LA ESV BP (MOD) 73.51 ml - LA ESV BP (MOD) index 34.19 ml/m2 - Diastolic/Systolic Function Name Value Normal Range MV E-wave Vmax 0.86 m/sec - MV deceleration time 144.77 msec - MV A-wave Vmax 0.33 m/sec - MV E:A ratio 2.65 ratio - Aortic Valve Name Value Normal Range AV Vmax 1.42 m/sec - AV VTI 25.08 cm - AV peak gradient 8.01 mmHg - AV mean gradient 4.23 mmHg - LVOT diameter 2.01 cm - LVOT Vmax 0.89 m/sec - LVOT VTI 14.93 cm - LVOT peak gradient 3.17 mmHg - LVOT mean gradient 1.83 mmHg - SV LVOT 47.41 ml - MARY ANN (continuity Vmax) 2 cm2 - MARY ANN (continuity VTI) 1.89 cm2 - Mitral Valve Name Value Normal Range MV Vmax 1.04 m/sec - MV VTI 27.77 cm - MV peak gradient 4.3 mmHg - MV mean gradient 1.92 mmHg - MR volume (PISA) 83.6 ml - MR flow (PISA) 265.21 ml/sec - MR ERO 0.49 cm2 - MR PISA radius 1.17 cm - MR alias Vmax 30.71 cm/sec - MVA (continuity VTI) 1.71 cm2 - Tricuspid Valve Name Value Normal Range TR Vmax 3.17 m/sec - TR peak gradient 40 mmHg - RAP 8 mmHg - RVSP 48 mmHg - IVC diameter 1.68 cm (1.2 - 2.3) Pulmonic Valve/Qp:Qs Name Value Normal Range PV Vmax 0.75 m/sec - PV peak gradient 2.26 mmHg - PV acceleration time 110.37 msec - Duron/IV: Voiding Method Urinal IV Catheter Type [Right INT / Saline Lock Antecubital] Active Medications - Current Medications Current Medications: Generic Name Dose Route Start Last Admin Trade Name Freq PRN Reason Stop Dose Admin Acetaminophen 650 mg 09/20/20 22:03 Acetaminophen 325 Mg Tab PO Q4H PRN Pain MILD(1-3)/Fever >100.5/OTT Albuterol 2.5 mg 09/20/20 22:03 Albuterol 2.5 Mg/3 Ml Nebu IH Q3HRT PRN Shortness Of Breath Albuterol/Ipratropium 1 ampul 09/21/20 02:00 09/21/20 08:11 Ipratropium/Albuterol Sulfate 3 Ml Ampul.Neb IH Not Given Q6HRT [facility] Aspirin 81 mg 09/21/20 10:00 09/21/20 10:18 Aspirin 81 Mg Tab Chew PO 81 mg QDAY [facility] Administration Atorvastatin Calcium 40 mg 09/21/20 22:00 Atorvastatin 40 Mg Tab PO QHS [facility] Carvedilol 12.5 mg 09/21/20 22:00 Carvedilol 25 Mg Tab PO BID [facility] Cyclobenzaprine HCl 10 mg 09/21/20 09:00 Cyclobenzaprine 10 Mg Tab PO TID PRN Muscle Spasm Dextrose 0 ml 09/20/20 22:03 Dextrose 50% In Water (25gm) 50 Ml Syringe IV Q30MIN PRN Hypoglycemia Protocol Docusate Sodium 100 mg 09/21/20 10:00 09/21/20 10:18 Docusate Sodium 100 Mg Cap PO Not Given BID [facility] Furosemide 40 mg 09/21/20 06:00 09/21/20 06:39 Furosemide 40 Mg/4 Ml Inj IV 40 mg BID@0600,1800 [facility] Administration Heparin Sodium (Porcine) 3,600 unit 09/21/20 10:50 Heparin 10,000 Units/10 Ml Vial 40 unit/kg (3600 unit) IV Q6H PRN Anti-Xa Assay < 0.1 units/ml Heparin Sodium/Sodium Chloride 25,000 unit in 500 mls @ 20 mls/hr 09/21/20 11:00 09/21/20 12:33 Heparin/ 0.45% Nacl-25,000 Unit/500 Ml IV 1,000 units/hr TITRATE WAYNE 20 mls/hr Administration Protocol 1,000 UNITS/HR Insulin Human Lispro 0 unit 09/21/20 07:30 09/21/20 12:32 Insulin Lispro 100 Unit/Ml SUB-Q 3 unit ACHS [facility] Administration Protocol Morphine Sulfate 2 mg 09/20/20 22:01 09/21/20 11:13 Morphine 2 Mg/1 Ml Inj IV 2 mg Q5MIN PRN Administration Chest Pain unrelieved by NTG Nitroglycerin 0.4 mg 09/20/20 22:01 Nitroglycerin 0.4 Mg Tab Subl SL .Q5MIN PRN Chest Pain Ondansetron HCl 4 mg 09/20/20 22:03 Ondansetron 4 Mg/2 Ml Inj IV Q6H PRN Nausea And Vomiting Oxycodone/Acetaminophen 1 tab 09/20/20 22:03 Oxycodone /Acetaminophen 5-325mg Tab PO Q6H PRN Pain, Moderate (4-6) Potassium Chloride 10 meq 09/21/20 10:00 09/21/20 10:18 Potassium Chloride Er 10 Meq Tab PO 10 meq QDAY WAYNE Administration Sodium Chloride 10 ml 09/21/20 10:00 09/21/20 10:17 Sodium Chloride 0.9% 10 Ml Flush Syringe IV 10 ml BID WAYNE Administration Sodium Chloride 10 ml 09/20/20 22:03 Sodium Chloride 0.9% 10 Ml Flush Syringe IV PRN PRN LINE FLUSH
[2020-09-21] MEDS ORDERED: DICYCLOMINE 20 MG/2 ML INJ IM ONE (18:00)
[2020-09-21] MEDS: carvediloL 25 MG TAB PO SCH (22:28)
[2020-09-21] MEDS: ONDANSETRON 4 MG/2 ML INJ IV PRN (22:29)
[2020-09-22] MEDS: IPRATROPIUM/ALBUTEROL SULFATE 3 ML AMPUL.NEB IH SCH ×4 (04:39→20:55)
[2020-09-22] MEDS: FUROSEMIDE 40 MG/4 ML INJ IV SCH ×2 (06:00→17:50)
[2020-09-22 06:32] LABS: BUN/Creatinine Ratio 19; Blood Urea Nitrogen 25 mg/dL (9-20); Calcium 8.7 mg/dL (8.4-10.2); Hemolysis Index 1
[2020-09-22] MEDS: INSULIN LISPRO 100 UNIT/ML SUB-Q SCH ×4 (08:39→23:55)
[2020-09-22 09:13] LABS: Hematocrit 42.2 % (35.5-45.6); Hemoglobin 13.9 gm/dl (11.8-15.2)
--- NOTE | 2020-09-22 09:38 | Cat Scan Report ---
CT ABDOMEN AND PELVIS WITH CONTRAST HISTORY: Abdominal pain COMPARISON: None TECHNIQUE: Routine abdominal and pelvic CT exam performed following intravenous contrast administrat ion. The patient received 100 mL IV Omnipaque 300. All CT scans at this location are performed using CT dose reduction for ALARA by means of automated exposure control. FINDINGS: CT ABDOMEN: Lung Bases: There is mild interstitial edema in the visualized lung bases. Liver: No significant abnormality. Biliary: No significant abnormality. Spleen: No significant abnormality. Unenlarged. Pancreas: No significant abnormality. Adrenals: No significant abnormality. Kidneys: There is a nonobstructing 3 mm stone in the mid right kidney. Lymphatics: No lymphadenopathy. Vasculature: There are some filling defects in some distal branches of the superior mesenteric artery , for example, reference image 100 of series #2 and image 94 series #2. There is no complete occlusio n. Atherosclerotic but nonaneurysmal abdominal aorta. Bowel/Peritoneum: Nonobstructive bowel pattern. Diverticulosis without mesocolonic fat stranding. No free air. No free fluid. Normal appendix. CT PELVIC: : No significant abnormality. Lymphatics: No lymphadenopathy. Osseous Structures: No aggressive appearing osseous lesions. Additional Findings: None IMPRESSION: 1. Multiple nonocclusive filling defects in distal branches of the superior mesenteric artery. No fin dings to suggest acute bowel ischemia. However, obviously, this finding does place the patient risk o f future acute ischemic events. 2. Nonobstructing right intrarenal stone. 3. Mild pulmonary edema in the visualized lung bases. Signer Name: Jeb Ratliff MD Signed: 09/22/2020 9:33 AM Workstation Name: [id number]
[2020-09-22] MEDS: DOCUSATE SODIUM 100 MG CAP PO SCH ×2 (11:02→23:15)
[2020-09-22] MEDS: POTASSIUM CHLORIDE ER 10 MEQ TAB PO SCH (11:02)
[2020-09-22] MEDS: carvediloL 25 MG TAB PO SCH (11:02)
[2020-09-22] MEDS: ASPIRIN 81 MG TAB CHEW PO SCH (11:02)
--- NOTE | 2020-09-22 11:44 | Progress Note ---
Assessment and Plan Cont present cardiac management. No heparin gtt or systemic AC at this time in setting of bright red rectal bleeding - H/H is stable, GI consultation pending. Plan for lexiscan MPI stress test in AM. NPO after MN. The patient has been seen in conjunction with Dr. Paty Powell who agrees with the assessment and plan of care. - Patient Problems (1) Acute HFrEF (heart failure with reduced ejection fraction) Current Visit: Yes Status: Acute (2) NICM (nonischemic cardiomyopathy) Current Visit: Yes Status: Chronic (3) Nonobstructive atherosclerosis of coronary artery Current Visit: Yes Status: Chronic (4) Uncontrolled hypertension Current Visit: Yes Status: Chronic (5) Diabetes Current Visit: Yes Status: Chronic (6) Paroxysmal atrial fibrillation Current Visit: Yes Status: Chronic (7) TONI (acute kidney injury) Current Visit: Yes Status: Acute (8) NSTEMI (non-ST elevated myocardial infarction) Current Visit: Yes Status: Acute Plan to address problem: suspect type II (9) Noncompliance with medication regimen Current Visit: Yes Status: Chronic (10) NSVT (nonsustained ventricular tachycardia) Current Visit: Yes Status: Acute (11) Automatic implantable cardioverter-defibrillator in situ Current Visit: Yes Status: Chronic Subjective Date of service: 09/22/20 Principal diagnosis: HF Interval history: pt resting in bed, SOB and abdominal swelling improving. c/o bright red bleeding per rectum overnight, heparin gtt d/c'd. tele reviewed - in SR HR 70s. Objective Last Vital Signs Temp 97.3 F L 09/22/20 11:19 Pulse 66 09/22/20 11:19 Resp 18 09/22/20 11:19 BP 153/86 09/22/20 11:19 Pulse Ox 96 09/22/20 11:19 - Physical Examination General: No Apparent Distress HEENT: Positive: PERRL, Normocephaly, Mucus Membranes Moist Neck: Positive: neck supple, trachea midline Cardiac: Positive: Reg Rate and Rhythm, S1/S2 Lungs: Positive: Decreased Breath Sounds Neuro: Positive: Grossly Intact Abdomen: Positive: Distended. Negative: Tender Skin: Negative: Rash Musculoskeletal: No Pain Extremities: Absent: edema - Labs and Meds CBC 09/22/20 Range/Units 08:37 Hgb 13.9 (11.8-15.2) gm/dl Hct 42.2 (35.5-45.6) % Comprehensive Metabolic Panel 09/22/20 Range/Units 05:17 Sodium 142 (137-145) mmol/L Potassium 3.7 (3.6-5.0) mmol/L Chloride 105.4 (98-107) mmol/L Carbon Dioxide 25 (22-30) mmol/L BUN 25 H (9-20) mg/dL Creatinine 1.3 (0.8-1.3) mg/dL Glucose 141 H (75-100) mg/dL Calcium 8.7 (8.4-10.2) mg/dL - Imaging and Cardiology EKG: report reviewed, image reviewed Echo: report reviewed ( EF 20-25%, mild LVH, restrictive diastolic filling, pacemaker wire in RV, mod MR, mod pulm HTN with RVSP 48mmHg. ) - Telemetry EKG Rhythm: Sinus Rhythm - EKG Sinus rhythms and dysrhythmias: sinus rhythm AV and intraventricular conduction: intraventricular conducti
--- NOTE | 2020-09-22 11:58 | Progress Note ---
Assessment and Plan Assessment and plan: Acute congestive heart failure exacerbation -Secondary to nonischemic cardiomyopathy -s/p AICD -09/20 proBNP 66801 -Cardiology consulted, appreciate recommendations -09/20 CXR shows mild congestive heart failure -IV diuretics, aspirin, RENEE, beta-luis armando -09/21 echocardiogram pending Possible Ischemic Bowel, acute -09/21 patient developed severe abd cramping and noted BRBPR -09/22 CT abd/pelvis with contrast shows multiple nonocclusive filling defects in distal branches of the superior mesenteric artery, no findings to suggest acute bowel ischemia. However, obviously, this finding does place the patient risk of future acute ischemic events. And nonobstructing right intrarenal stone with mild pulmonary edema in the visualized lung bases. -GI, Surgery and vascular surgery consulted, appreciate recommendations Acute kidney injury, acute -Patient presented with a creatinine/BUN of 1.7/ -On last visit 05/2014 BUN/creatinine 14/1.4 -09/21 BUN/creatinine 30/1.6, 09/22 BUN/Cr 25/1.3 -Trend BMP -Strict intake and output -Avoid nephrotoxic medications -Renally dose medications -Daily weights -Consider nephrology consult if not improving -Secondary to vasomotor nephropathy Acute respiratory failure with hypoxia, acute -Presented with shortness of breath -Supplemental oxygen as needed -SPO2 monitoring -Likely secondary to acute CHF exacerbation Transaminitis, acute -Admit AST 42, ALT 65 -Likely increased in the setting of acute CHF exacerbation -Trend LFTs Elevated troponin -Troponin 0.224, 0.217, 0.244 -Cardiology consulted -As needed morphine pain and nitroglycerin Paroxysmal Atrial Fibrillation -Home medications include Entresto, Lasix, carvedilol, Xarelto, potassium -Rate control with BB -Anticoagulation with heparin drip but later he reportedly developed BRBPR and was stopped by cardiology Diabetes mellitus, -09/21 hemoglobin A1c 9.3 -Per patient he has not been taking medications and attempts to control blood glucose by diet -Patient does not have a blood glucose monitor at home -SSI -Accu-Cheks AC at bedtime -CC cardiac diet Hypertension, chronic -Home medications include Entresto, Lasix, carvedilol, potassium -Blood pressure monitor per protocol -Hydralazine for SBP greater than 160 as needed CAD, chronic -Statin therapy Noncompliance chronic -Patient stated he has been out of his medications for approximately 2 months due to relocation -Patient counseled on importance of compliance with medical treatment and maintaining a PCP -CM consulted for social issues DVT prophylaxis -GI prophylaxis -Systemic anticoagulation with heparin drip -SCDs to bilateral result in bed History Interval history: The pt is a 60-year-old male with Congestive heart failure, nonobstructive CAD via [facility] in [place], AICD in situ (placed in 2018 in [place]), HTN, DM, paroxysmal atrial fibrillation (noncompliant with home Xarelto) and with noncomplience due to to relocation who presented with progressively worsening SOB, MURPHY, orthopnea, PND, abdominal swelling and 5 to 8 pound weight gain for 4 days prior to arrival on 09/20. Patient was admitted to the hospital service with acute exacerbation of congestive heart failure, elevated troponins and acute kidney injury. Cardiology was consulted. Patient CT abdomen/pelvis with oral contrast was not done due to inability to tolerate oral contrast. This morning we ordered a CT abdomen/pelvis with IV contrast and it showed nonocclusive filling deficits in the superior mesenteric artery. Surgery, GI and vascular surgery were consulted. Cardiology is planning a stress test in the morning. 09/22: echocardiogram ,s upplemental oxygenation. Started on heparin drip and intubated developed bright red blood per rectum and severe abdominal pain. CT abdomen/pelvis with oral contrast was ordered. Hospitalist Physical - Constitutional Vitals: Temp Pulse Resp BP Pulse Ox 98.2 F 85 20 146/95 97 09/22/20 08:02 09/22/20 11:02 09/22/20 08:15 09/22/20 11:02 09/22/20 09:13 General appearance: Present: no acute distress - EENT Eyes: Present: PERRL, EOM intact ENT: hearing intact, clear oral mucosa, dentition normal - Neck Neck: Present: normal ROM - Respiratory Respiratory effort: normal Respiratory: bilateral: diminished - Cardiovascular Rhythm: regular Heart Sounds: Present: S1 & S2. Absent: systolic murmur, diastolic murmur - Extremities Extremities: no ischemia, pulses intact, pulses symmetrical, No edema, normal temperature, normal color, Full ROM Peripheral Pulses: within normal limits - Abdominal General gastrointestinal: soft, non-tender, non-distended, normal bowel sounds - Integumentary Integumentary: Present: warm, dry - Psychiatric Psychiatric: appropriate mood/affect, cooperative - Neurologic Neurologic: CNII-XII intact, no focal deficits, moves all extremities - Allied Health Allied health notes reviewed: nursing HEART Score - HEART Score EKG: Normal Age: 45-65 Risk factors: 1-2 risk factors Troponin: Troponin T 0.157 ng/mL (0.00-0.029) H* D 09/22/20 05:17 Troponin: 1-3x normal limit Results - Labs CBC & Chem 7: 09/22/20 08:37 09/22/20 05:17 Labs: Laboratory Last Values WBC 9.2 K/mm3 (4.5-11.0) 09/21/20 05:03 RBC 4.97 M/mm3 (3.65-5.03) 09/21/20 05:03 Hgb 13.9 gm/dl (11.8-15.2) 09/22/20 08:37 Hct 42.2 % (35.5-45.6) 09/22/20 08:37 MCV 85 fl (84-94) 09/21/20 05:03 MCH 28 pg (28-32) 09/21/20 05:03 MCHC 33 % (32-34) 09/21/20 05:03 RDW 15.4 % (13.2-15.2) H 09/21/20 05:03 Plt Count 228 K/mm3 (140-440) 09/21/20 05:03 Lymph % (Auto) 24.0 % (13.4-35.0) 09/21/20 05:03 [place] % (Auto) 15.0 % (0.0-7.3) H 09/21/20 05:03 Eos % (Auto) 2.4 % (0.0-4.3) 09/21/20 05:03 Baso % (Auto) 0.9 % (0.0-1.8) 09/21/20 05:03 Lymph # (Auto) 2.2 K/mm3 (1.2-5.4) 09/21/20 05:03 [place] # (Auto) 1.4 K/mm3 (0.0-0.8) H 09/21/20 05:03 Eos # (Auto) 0.2 K/mm3 (0.0-0.4) 09/21/20 05:03 Baso # (Auto) 0.1 K/mm3 (0.0-0.1) 09/21/20 05:03 Seg Neutrophils % 57.7 % (40.0-70.0) 09/21/20 05:03 Seg Neutrophils # 5.3 K/mm3 (1.8-7.7) 09/21/20 05:03 PT 15.3 Sec. (12.2-14.9) H 09/20/20 18:43 INR 1.21 (0.87-1.13) H 09/20/20 18:43 APTT 28.5 Sec. (24.2-36.6) 09/20/20 18:43 Heparin Anti-Xa Level 2.00 U.I./ml (0.3-0.7) H 09/21/20 18:06 Sodium 142 mmol/L (137-145) 09/22/20 05:17 Potassium 3.7 mmol/L (3.6-5.0) 09/22/20 05:17 Chloride 105.4 mmol/L (98-107) 09/22/20 05:17 Carbon Dioxide 25 mmol/L (22-30) 09/22/20 05:17 Anion Gap 15 mmol/L 09/22/20 05:17 BUN 25 mg/dL (9-20) H 09/22/20 05:17 Creatinine 1.3 mg/dL (0.8-1.3) 09/22/20 05:17 Estimated GFR > 60 ml/min 09/22/20 05:17 BUN/Creatinine Ratio 19 % 09/22/20 05:17 Glucose 141 mg/dL (75-100) H 09/22/20 05:17 POC Glucose 180 mg/dL (70-105) H 09/21/20 20:13 Hemoglobin A1c 9.3 % (4-6) H 09/21/20 05:03 Calcium 8.7 mg/dL (8.4-10.2) 09/22/20 05:17 Total Bilirubin 1.00 mg/dL (0.1-1.2) 09/20/20 18:43 AST 42 units/L (5-40) H 09/20/20 18:43 ALT 65 units/L (7-56) H 09/20/20 18:43 Alkaline Phosphatase 93 units/L (35-129) 09/20/20 18:43 Troponin T 0.157 ng/mL (0.00-0.029) H* D 09/22/20 05:17 NT-Pro-B Natriuret Pep 3241 pg/mL (0-900) H 09/20/20 18:43 Total Protein 7.8 g/dL (6.3-8.2) 09/20/20 18:43 Albumin 4.3 g/dL (3.9-5) 09/20/20 18:43 Albumin/Globulin Ratio 1.2 % 09/20/20 18:43 Triglycerides 111 mg/dL (2-149) 09/20/20 18:43 Cholesterol 219 mg/dL (50-199) H 09/20/20 18:43 LDL Cholesterol Direct 165 mg/dL (50-130) H 09/20/20 18:43 HDL Cholesterol 48 mg/dL (40-59) 09/20/20 18:43 Cholesterol/HDL Ratio 4.56 % 09/20/20 18:43 - Diagnostic Impressions Diagnostic Impressions: Echocardiogram 09/20/20 22:02 Transthoracic Echocardiogram Indication: Dyspnea BP: 126/72 HR: 75 Conclusions *The left ventricular chamber size is severely dilated. *Mild concentric left ventricular hypertrophy is observed. *Global left ventricular systolic function is severely decreased. *The estimated ejection fraction is 20-25%. *The left ventricular diastolic filling pattern is restrictive. *A pacemaker wire is visualized in the right ventricle. *There is moderate mitral regurgitation. *There is evidence of moderate pulmonary hypertension. *There is no pericardial effusion. Findings Left Ventricle: The left ventricular chamber size is severely dilated. Mild concentric left ventricular hypertrophy is observed. Global left ventricular systolic function is severely decreased. The estimated ejection fraction is 20-25%. The left ventricular diastolic filling pattern is restrictive. Right Ventricle: The right ventricular cavity size is normal. The right ventricular global systolic function is mildly reduced. A pacemaker wire is visualized in the right ventricle. Right Atrium: The right atrial cavity size is normal. A pacemaker wire is visualized in the right atrium. Aortic Valve: Mild aortic leaflet calcification is visualized. There is no evidence of aortic regurgitation. There is no evidence of aortic stenosis. Mitral Valve: The mitral valve leaflets are mildly thickened. There is moderate mitral regurgitation. Tricuspid Valve: The tricuspid valve leaflets are normal. There is mild tricuspid regurgitation. The right ventricular systolic pressure is calculated at 48 mmHg. There is evidence of moderate pulmonary hypertension. Pulmonic Valve: The pulmonic valve appears normal. There is trace pulmonic regurgitation. Pericardium: There is no pericardial effusion. Aorta: The aorta appears normal. Venous: The inferior vena cava appears normal. Measurements Chambers 2D Name Value Normal Range IVSd (2D) 1.11 cm (0.6 - 1.1) LVPWd (2D) 1.14 cm (0.6 - 1.1) LVIDd (2D) 6.6 cm (3.7 - 5.6) LVIDs (2D) 5.98 cm (2 - 3.8) LV FS (2D) 9.38 % - EF Teichholz (2D) 20.09 % - Ao root diameter (2D) 3 cm (2 - 3.7) Volumes/Mass Name Value Normal Range LA ESV SP 4CH (A/L) 66.11 ml - LA ESV SP 2CH (A/L) 82.67 ml - LA ESV BP (A/L) 77.05 ml - LA ESV BP (A/L) index 35.84 ml/m2 - LA ESV SP 4CH (MOD) 62.68 ml - LA ESV SP 2CH (MOD) 79.67 ml - LA ESV BP (MOD) 73.51 ml - LA ESV BP (MOD) index 34.19 ml/m2 - Diastolic/Systolic Function Name Value Normal Range MV E-wave Vmax 0.86 m/sec - MV deceleration time 144.77 msec - MV A-wave Vmax 0.33 m/sec - MV E:A ratio 2.65 ratio - Aortic Valve Name Value Normal Range AV Vmax 1.42 m/sec - AV VTI 25.08 cm - AV peak gradient 8.01 mmHg - AV mean gradient 4.23 mmHg - LVOT diameter 2.01 cm - LVOT Vmax 0.89 m/sec - LVOT VTI 14.93 cm - LVOT peak gradient 3.17 mmHg - LVOT mean gradient 1.83 mmHg - SV LVOT 47.41 ml - MARY ANN (continuity Vmax) 2 cm2 - MARY ANN (continuity VTI) 1.89 cm2 - Mitral Valve Name Value Normal Range MV Vmax 1.04 m/sec - MV VTI 27.77 cm - MV peak gradient 4.3 mmHg - MV mean gradient 1.92 mmHg - MR volume (PISA) 83.6 ml - MR flow (PISA) 265.21 ml/sec - MR ERO 0.49 cm2 - MR PISA radius 1.17 cm - MR alias Vmax 30.71 cm/sec - MVA (continuity VTI) 1.71 cm2 - Tricuspid Valve Name Value Normal Range TR Vmax 3.17 m/sec - TR peak gradient 40 mmHg - RAP 8 mmHg - RVSP 48 mmHg - IVC diameter 1.68 cm (1.2 - 2.3) Pulmonic Valve/Qp:Qs Name Value Normal Range PV Vmax 0.75 m/sec - PV peak gradient 2.26 mmHg - PV acceleration time 110.37 msec - Duron/IV: Voiding Method Toilet IV Catheter Type [Right INT / Saline Lock Antecubital] Active Medications - Current Medications Current Medications: Generic Name Dose Route Start Last Admin Trade Name Freq PRN Reason Stop Dose Admin Acetaminophen 650 mg 09/20/20 22:03 Acetaminophen 325 Mg Tab PO Q4H PRN Pain MILD(1-3)/Fever >100.5/OTT Albuterol 2.5 mg 09/20/20 22:03 Albuterol 2.5 Mg/3 Ml Nebu IH Q3HRT PRN Shortness Of Breath Albuterol/Ipratropium 1 ampul 09/21/20 02:00 09/22/20 08:15 Ipratropium/Albuterol Sulfate 3 Ml Ampul.Neb IH 1 ampul Q6HRT WAYNE Administration Aspirin 81 mg 09/21/20 10:00 09/22/20 11:02 Aspirin 81 Mg Tab Chew PO 81 mg QDAY WAYNE Administration Atorvastatin Calcium 40 mg 09/21/20 22:00 09/21/20 22:28 Atorvastatin 40 Mg Tab PO 40 mg QHS WAYNE Administration Carvedilol 12.5 mg 09/22/20 22:00 Carvedilol 12.5 Mg Tab PO BID WAYNE Cyclobenzaprine HCl 10 mg 09/21/20 09:00 Cyclobenzaprine 10 Mg Tab PO TID PRN Muscle Spasm Dextrose 0 ml 09/20/20 22:03 Dextrose 50% In Water (25gm) 50 Ml Syringe IV Q30MIN PRN Hypoglycemia Protocol Docusate Sodium 100 mg 09/21/20 10:00 09/22/20 11:02 Docusate Sodium 100 Mg Cap PO 100 mg BID WAYNE Administration Furosemide 40 mg 09/21/20 06:00 09/22/20 06:00 Furosemide 40 Mg/4 Ml Inj IV 40 mg BID@0600,1800 WAYNE Administration Heparin Sodium (Porcine) 3,600 unit 09/21/20 10:50 Heparin 10,000 Units/10 Ml Vial 40 unit/kg (3600 unit) IV Q6H PRN Anti-Xa Assay < 0.1 units/ml Heparin Sodium/Sodium Chloride 25,000 unit in 500 mls @ 20 mls/hr 09/21/20 11:00 09/21/20 15:00 Heparin/ 0.45% Nacl-25,000 Unit/500 Ml IV 0 units/hr TITRATE WAYNE 0 mls/hr Titration Protocol 1,000 UNITS/HR Insulin Human Lispro 0 unit 09/21/20 07:30 09/22/20 08:39 Insulin Lispro 100 Unit/Ml SUB-Q Not Given ACHS [facility] Protocol Morphine Sulfate 2 mg 09/20/20 22:01 09/21/20 11:13 Morphine 2 Mg/1 Ml Inj IV 2 mg Q5MIN PRN Administration Chest Pain unrelieved by NTG Nitroglycerin 0.4 mg 09/20/20 22:01 Nitroglycerin 0.4 Mg Tab Subl SL .Q5MIN PRN Chest Pain Ondansetron HCl 4 mg 09/20/20 22:03 09/21/20 22:29 Ondansetron 4 Mg/2 Ml Inj IV 4 mg Q6H PRN Administration Nausea And Vomiting Oxycodone/Acetaminophen 1 tab 09/20/20 22:03 Oxycodone /Acetaminophen 5-325mg Tab PO Q6H PRN Pain, Moderate (4-6) Potassium Chloride 10 meq 09/21/20 10:00 09/22/20 11:02 Potassium Chloride Er 10 Meq Tab PO 10 meq QDAY WAYNE Administration Sodium Chloride 10 ml 09/21/20 10:00 09/22/20 11:03 Sodium Chloride 0.9% 10 Ml Flush Syringe IV 10 ml BID WAYNE Administration Sodium Chloride 10 ml 09/20/20 22:03 Sodium Chloride 0.9% 10 Ml Flush Syringe IV PRN PRN LINE FLUSH
--- NOTE | 2020-09-22 15:49 | Consultation ---
History of Present Illness - Reason for Consult Consult date: 09/22/20 GI bleed Requesting physician: AUBREE BRIDGES - History of Present Illness 60 yo BM admitted with CHF exacerbation, and hx of A Fib, on whom I am consulted for GI bleed. Pt moved from [place] in 05/2020, and due to lack of insurance, has not been on his cardiac meds or Xarelto. He was admitted with CHF, and has LVEF = ~ 20%. Yesterday, 1 hr after breakfast, developed acute lower abd cramping with N/V x 1 (food), and 4 episodes of loose stool, which he describes as being dark brown, with no red or black stool. He thought it looked like dried blood in the bowl. Symptoms resolved during the night. CT scan shows nonocculsive filling defects in distal SMA distribution. Currently, doing well. No abd pain, N/V. Denies prior similar symptoms, and BMs usu 1-2x/d. No hx of PUD, no weight loss. No CP or SOB. Meds reviewed. Past History Past Medical History: atrial fib, CAD, diabetes, heart failure (LVEF = 20%), hypertension, other (DJD) Past Surgical History: No surgical history, Other (AICD) Social history: , Lives alone, smoking (former - quit 3 years ago), full code. denies: alcohol abuse Family history: hypertension Medications and Allergies Allergies Allergy/AdvReac Type Severity Reaction Status Date / Time No Known Allergies Allergy Unverified 06/22/14 19:54 Home Medications Medication Instructions Recorded Confirmed Last Taken Type Insulin NPH/Regular [Novolin 70/30] 17 unit SQ BIDDIAB #1 vial 06/23/14 Unknown Rx Lancets [Glucocom Lancets] 1 each MC BID #1 box 06/23/14 Unknown Rx Lisinopril/Hydrochlorothiazide 1 each PO DAILY #30 tablet 06/23/14 Unknown Rx [Zestoretic 10-12.5 mg] Metoprolol [Lopressor TAB] 12.5 mg PO BID #60 tablet 06/23/14 Unknown Rx Syringe and Needle,Insulin,1Ml 1 each MC BID #1 box 06/23/14 Unknown Rx [Advocate Syringes] amLODIPine 10 mg PO DAILY #30 tab 06/23/14 Unknown Rx Amlodipine Besylate [Norvasc] 5 mg PO QDAY 30 Days #30 tablet 03/07/18 Unknown Rx Cyclobenzaprine [Flexeril] 10 mg PO TID PRN #15 tablet 03/07/18 Unknown Rx Ibuprofen [Motrin] 600 mg PO Q8H PRN #12 tablet 03/07/18 Unknown Rx carvediloL [Coreg] 25 mg PO BID 30 Days #60 tablet 03/07/18 Unknown Rx lisinopriL [Zestril TAB] 20 mg PO QDAY 30 Days #30 tablet 03/07/18 Unknown Rx Active Meds: Active Medications Acetaminophen (Acetaminophen 325 Mg Tab) 650 mg PO Q4H PRN PRN Reason: Pain MILD(1-3)/Fever >100.5/OTT Albuterol (Albuterol 2.5 Mg/3 Ml Nebu) 2.5 mg IH Q3HRT PRN PRN Reason: Shortness Of Breath Albuterol/Ipratropium (Ipratropium/Albuterol Sulfate 3 Ml Ampul.Neb) 1 ampul IH Q6HRT [facility] Last Admin: 09/22/20 14:20 Dose: 1 ampul Documented by: Atorvastatin Calcium (Atorvastatin 40 Mg Tab) 40 mg PO QHS [facility] Last Admin: 09/21/20 22:28 Dose: 40 mg Documented by: Carvedilol (Carvedilol 12.5 Mg Tab) 12.5 mg PO BID [facility] Cyclobenzaprine HCl (Cyclobenzaprine 10 Mg Tab) 10 mg PO TID PRN PRN Reason: Muscle Spasm Dextrose (Dextrose 50% In Water (25gm) 50 Ml Syringe) 0 ml IV Q30MIN PRN; Protocol PRN Reason: Hypoglycemia Docusate Sodium (Docusate Sodium 100 Mg Cap) 100 mg PO BID [facility] Last Admin: 09/22/20 11:02 Dose: 100 mg Documented by: Furosemide (Furosemide 40 Mg/4 Ml Inj) 40 mg IV BID@0600,1800 [facility] Last Admin: 09/22/20 06:00 Dose: 40 mg Documented by: Heparin Sodium (Porcine) (Heparin 10,000 Units/10 Ml Vial) 3,600 unit 40 unit/kg (3600 unit) IV Q6H PRN PRN Reason: Anti-Xa Assay < 0.1 units/ml Insulin Human Lispro (Insulin Lispro 100 Unit/Ml) 0 unit SUB-Q ACHS [facility]; Protocol Last Admin: 09/22/20 12:53 Dose: Not Given Documented by: Morphine Sulfate (Morphine 2 Mg/1 Ml Inj) 2 mg IV Q5MIN PRN PRN Reason: Chest Pain unrelieved by NTG Last Admin: 09/21/20 11:13 Dose: 2 mg Documented by: Nitroglycerin (Nitroglycerin 0.4 Mg Tab Subl) 0.4 mg SL .Q5MIN PRN PRN Reason: Chest Pain Ondansetron HCl (Ondansetron 4 Mg/2 Ml Inj) 4 mg IV Q6H PRN PRN Reason: Nausea And Vomiting Last Admin: 09/21/20 22:29 Dose: 4 mg Documented by: Oxycodone/Acetaminophen (Oxycodone /Acetaminophen 5-325mg Tab) 1 tab PO Q6H PRN PRN Reason: Pain, Moderate (4-6) Potassium Chloride (Potassium Chloride Er 10 Meq Tab) 10 meq PO QDAY [facility] Last Admin: 09/22/20 11:02 Dose: 10 meq Documented by: Sodium Chloride (Sodium Chloride 0.9% 10 Ml Flush Syringe) 10 ml IV BID [facility] Last Admin: 09/22/20 11:03 Dose: 10 ml Documented by: Sodium Chloride (Sodium Chloride 0.9% 10 Ml Flush Syringe) 10 ml IV PRN PRN PRN Reason: LINE FLUSH Review of Systems All systems: negative (as noted in HPI) Exam - Constitutional Vitals: Temp Pulse Resp BP Pulse Ox 97.3 F L 88 20 153/86 96 09/22/20 11:19 09/22/20 14:19 09/22/20 14:19 09/22/20 11:19 09/22/20 11:19 General appearance: Present: no acute distress - EENT Eyes: Present: PERRL, EOM intact ENT: hearing intact - Respiratory Respiratory effort: normal Respiratory: bilateral: CTA - Cardiovascular Rhythm: regular Heart Sounds: Present: S1 & S2 - Abdominal General gastrointestinal: Present: soft, non-tender Results - Labs CBC & Chem 7: 09/22/20 08:37 09/22/20 05:17 Labs: Abnormal lab results 09/21/20 09/21/20 09/21/20 Range/Units 16:23 18:06 20:13 Heparin Anti-Xa Level 2.00 H (0.3-0.7) U.I./ml BUN (9-20) mg/dL Glucose (75-100) mg/dL POC Glucose 219 H 180 H (70-105) mg/dL Troponin T (0.00-0.029) ng/mL 09/22/20 Range/Units 05:17 Heparin Anti-Xa Level (0.3-0.7) U.I./ml BUN 25 H (9-20) mg/dL Glucose 141 H (75-100) mg/dL POC Glucose (70-105) mg/dL Troponin T 0.157 H* D (0.00-0.029) ng/mL - Imaging and Cardiology CT scan - abdomen: report reviewed (as per HPI) Assessment and Plan 1. Rectal bleed - history given to me is inconsistent with this. Pt seemed to have transient process, possibly related to showering emboli. Hgb stable. Will check stool for occult blood, but at this point, NO contraindication to anticoagulation. - check stool for occult blood - monitor H/H 2. Abd pain - transient. Possibly related to self-limited toxic food ingestion, or more likely to embolic shower, based on CT findings. - monitor - would anticoagulate
--- NOTE | 2020-09-22 15:52 | Consultation ---
History of Present Illness Consult date: 09/22/20 Reason for consult: abdominal pain Chief complaint: abdominal pain - History of present illness History of present illness: 60-year-old male with past medical history of atrial fibrillation, CAD, CHF, pac emaker who presented to the emergency room with complaints of increasing shortness of breath. He has been seen by cardiology for elevated troponins and treating accordingly. He was started on a heparin drip. Yesterday the patient states he ate eggs for breakfast and immediately started to have crampy diffuse abdominal pain. He states that he vomited up the food and had severe diarrhea. He also noted dark red blood in his bowel movement. Heparin drip was stopped and the patient states he has not had a bloody bowel movement since. He has never experienced bloody bowel movements in the past. He has never had a colonoscopy. He states he has had crampy abdominal pain like this in the past 2 times when he ate some old food. No fevers or chills, chest pain. Work-up for abdominal pain included CT scan abdomen pelvis with IV contrast which showed nonobstructing clot in the distal SMA vessels without evidence of bowel ischemia, free air, free fluid. Apparently the patient has been off of Xarelto for the past 4 months. Past History Past Medical History: atrial fib, CAD, diabetes, heart failure, hypertension, other (DJD) Past Surgical History: No surgical history Social history: , Lives alone, smoking (former - quit 3 years ago), full code. denies: alcohol abuse Family history: hypertension Medications and Allergies Allergies Allergy/AdvReac Type Severity Reaction Status Date / Time No Known Allergies Allergy Unverified 06/22/14 19:54 Home Medications Medication Instructions Recorded Confirmed Last Taken Type Insulin NPH/Regular [Novolin 70/30] 17 unit SQ BIDDIAB #1 vial 06/23/14 Unknown Rx Lancets [Glucocom Lancets] 1 each MC BID #1 box 06/23/14 Unknown Rx Lisinopril/Hydrochlorothiazide 1 each PO DAILY #30 tablet 06/23/14 Unknown Rx [Zestoretic 10-12.5 mg] Metoprolol [Lopressor TAB] 12.5 mg PO BID #60 tablet 06/23/14 Unknown Rx Syringe and Needle,Insulin,1Ml 1 each MC BID #1 box 06/23/14 Unknown Rx [Advocate Syringes] amLODIPine 10 mg PO DAILY #30 tab 06/23/14 Unknown Rx Amlodipine Besylate [Norvasc] 5 mg PO QDAY 30 Days #30 tablet 03/07/18 Unknown Rx Cyclobenzaprine [Flexeril] 10 mg PO TID PRN #15 tablet 03/07/18 Unknown Rx Ibuprofen [Motrin] 600 mg PO Q8H PRN #12 tablet 03/07/18 Unknown Rx carvediloL [Coreg] 25 mg PO BID 30 Days #60 tablet 03/07/18 Unknown Rx lisinopriL [Zestril TAB] 20 mg PO QDAY 30 Days #30 tablet 03/07/18 Unknown Rx Active Meds: Active Medications Acetaminophen (Acetaminophen 325 Mg Tab) 650 mg PO Q4H PRN PRN Reason: Pain MILD(1-3)/Fever >100.5/OTT Albuterol (Albuterol 2.5 Mg/3 Ml Nebu) 2.5 mg IH Q3HRT PRN PRN Reason: Shortness Of Breath Albuterol/Ipratropium (Ipratropium/Albuterol Sulfate 3 Ml Ampul.Neb) 1 ampul IH Q6HRT [facility] Last Admin: 09/22/20 14:20 Dose: 1 ampul Documented by: Atorvastatin Calcium (Atorvastatin 40 Mg Tab) 40 mg PO QHS [facility] Last Admin: 09/21/20 22:28 Dose: 40 mg Documented by: Carvedilol (Carvedilol 12.5 Mg Tab) 12.5 mg PO BID [facility] Cyclobenzaprine HCl (Cyclobenzaprine 10 Mg Tab) 10 mg PO TID PRN PRN Reason: Muscle Spasm Dextrose (Dextrose 50% In Water (25gm) 50 Ml Syringe) 0 ml IV Q30MIN PRN; Protocol PRN Reason: Hypoglycemia Docusate Sodium (Docusate Sodium 100 Mg Cap) 100 mg PO BID [facility] Last Admin: 09/22/20 11:02 Dose: 100 mg Documented by: Furosemide (Furosemide 40 Mg/4 Ml Inj) 40 mg IV BID@0600,1800 [facility] Last Admin: 09/22/20 06:00 Dose: 40 mg Documented by: Heparin Sodium (Porcine) (Heparin 10,000 Units/10 Ml Vial) 3,600 unit 40 unit/kg (3600 unit) IV Q6H PRN PRN Reason: Anti-Xa Assay < 0.1 units/ml Insulin Human Lispro (Insulin Lispro 100 Unit/Ml) 0 unit SUB-Q ACHS [facility]; Calin col Last Admin: 09/22/20 12:53 Dose: Not Given Documented by: Morphine Sulfate (Morphine 2 Mg/1 Ml Inj) 2 mg IV Q5MIN PRN PRN Reason: Chest Pain unrelieved by NTG Last Admin: 09/21/20 11:13 Dose: 2 mg Documented by: Nitroglycerin (Nitroglycerin 0.4 Mg Tab Subl) 0.4 mg SL .Q5MIN PRN PRN Reason: Chest Pain Ondansetron HCl (Ondansetron 4 Mg/2 Ml Inj) 4 mg IV Q6H PRN PRN Reason: Nausea And Vomiting Last Admin: 09/21/20 22:29 Dose: 4 mg Documented by: Oxycodone/Acetaminophen (Oxycodone /Acetaminophen 5-325mg Tab) 1 tab PO Q6H PRN PRN Reason: Pain, Moderate (4-6) Potassium Chloride (Potassium Chloride Er 10 Meq Tab) 10 meq PO QDAY [facility] Last Admin: 09/22/20 11:02 Dose: 10 meq Documented by: Sodium Chloride (Sodium Chloride 0.9% 10 Ml Flush Syringe) 10 ml IV BID [facility] Last Admin: 09/22/20 11:03 Dose: 10 ml Documented by: Sodium Chloride (Sodium Chloride 0.9% 10 Ml Flush Syringe) 10 ml IV PRN PRN PRN Reason: LINE FLUSH Review of Systems All systems: negative (10 point ROS performed and negative except for that listed in HPI) Exam Vital Signs Pulse Resp BP Pulse Ox 86 20 168/107 98 09/20/20 21:30 09/20/20 21:30 09/20/20 21:30 09/20/20 21:30 Narrative exam: Gen.: Awake, alert, oriented 3. No apparent distress ENT: Trachea midline. No lymphadenopathy. No scleral icterus or conjunctival pallor CV: S1, S2 present Respiratory: No audible wheezes Abdomen: Soft, nondistended, nontender. No rebound, rigidity, guarding Extremities: No clubbing, cyanosis, edema Results - Labs 09/22/20 08:37 09/22/20 05:17 Abnormal lab results 09/21/20 09/21/20 09/21/20 Range/Units 16:23 18:06 20:13 Heparin Anti-Xa Level 2.00 H (0.3-0.7) U.I./ml BUN (9-20) mg/dL Glucose (75-100) mg/dL POC Glucose 219 H 180 H (70-105) mg/dL Troponin T (0.00-0.029) ng/mL 09/22/20 Range/Units 05:17 Heparin Anti-Xa Level (0.3-0.7) U.I./ml BUN 25 H (9-20) mg/dL Glucose 141 H (75-100) mg/dL POC Glucose (70-105) mg/dL Troponin T 0.157 H* D (0.00-0.029) ng/mL Diabetes panel 09/22/20 Range/Units 05:17 Sodium 142 (137-145) mmol/L Potassium 3.7 (3.6-5.0) mmol/L Chloride 105.4 (98-107) mmol/L Carbon Dioxide 25 (22-30) mmol/L BUN 25 H (9-20) mg/dL Creatinine 1.3 (0.8-1.3) mg/dL Glucose 141 H (75-100) mg/dL Calcium 8.7 (8.4-10.2) mg/dL Calcium panel 09/22/20 Range/Units 05:17 Calcium 8.7 (8.4-10.2) mg/dL Pituitary panel 09/22/20 Range/Units 05:17 Sodium 142 (137-145) mmol/L Potassium 3.7 (3.6-5.0) mmol/L Chloride 105.4 (98-107) mmol/L Carbon Dioxide 25 (22-30) mmol/L BUN 25 H (9-20) mg/dL Creatinine 1.3 (0.8-1.3) mg/dL Glucose 141 H (75-100) mg/dL Calcium 8.7 (8.4-10.2) mg/dL Adrenal panel 09/22/20 Range/Units 05:17 Sodium 142 (137-145) mmol/L Potassium 3.7 (3.6-5.0) mmol/L Chloride 105.4 (98-107) mmol/L Carbon Dioxide 25 (22-30) mmol/L BUN 25 H (9-20) mg/dL Creatinine 1.3 (0.8-1.3) mg/dL Glucose 141 H (75-100) mg/dL Calcium 8.7 (8.4-10.2) mg/dL - Imaging CT scan - abdomen: report reviewed, image reviewed CT scan - pelvis: report reviewed, image reviewed Assessment and Plan 60 yo M with 1. nonobstructive emboli of distal SMA 2. abdominal pain 3. LGIB 4. Afib 5. elevated troponin 6. CHF Pt stable. VSS and HB stable and rectal bleeding has resolved. No evidence of acute abdomen or ischemia of bowel based on physical exam, labs, or imaging. Plan: 1. Recommend resumption of anticoagulation 2. Diet as tolerated 3. IVF 4. GI consulted - will defer need for cscope to GI service. D/W Dr. Ramirez 5. Vascular surgery consult 6. No indication for acute surgical intervention at this time. Thank you for this consultation. Please call with any questions or concerns. Evaluation and treatment of this patient was during the time of the national and state emergency arising from COVID19 coronavirus pandemic. Treatment and procedures performed meet the current and available best practice and guidelines for patient during the COVID pandemic.
--- NOTE | 2020-09-22 17:39 | Consultation ---
History of Present Illness - Reason for Consult Consult date: 09/22/20 Superior Mesenteric Artery Thrombus Requesting physician: MARYELLEN BURNHAM - History of Present Illness The patient is a 60-year-old male with a history of congestive heart failure, hypertension, diabetes mellitus, and atrial fibrillation who presented to the hospital with complaints of dyspnea on exertion, increasing abdominal girth, and weight gain. This was attributed to the the patient's inability to get his meds resulted in an exacerbation of his CHF. The patient was also supposed to be on Xarelto for his atrial fibrillation which he was not able to obtain. Yesterday the patient had a male and began complaining of severe crampy abdominal pain associated with one episode of vomiting and multiple loose stools. He states that he had not experienced any episodes of pain, loose stools, or vomiting associated with food in the past. He denies any history of food fear or significant weight loss. He states that eventually his pain resolved. He had been previously started on a heparin drip for anticoagulation associated with his atrial fibrillation and CHF however he states that this was stopped because he began having bloody bowel movements. He states that he has not had any a dditional bloody bowel movements since cessation of his heparin drip however he is continued to have watery bowel movements with any oral intake. He has no additional complaints at this time. Past History Past Medical History: atrial fib, CAD, diabetes, heart failure, hypertension, other (DJD) Past Surgical History: Other (AICD placement) Social history: , Lives alone, smoking (former - quit 3 years ago), full code. denies: alcohol abuse Family history: hypertension Medications and Allergies Allergies Allergy/AdvReac Type Severity Reaction Status Date / Time No Known Allergies Allergy Unverified 06/22/14 19:54 Home Medications Medication Instructions Recorded Confirmed Last Taken Type Insulin NPH/Regular [Novolin 70/30] 17 unit SQ BIDDIAB #1 vial 06/23/14 Unknown Rx Lancets [Glucocom Lancets] 1 each MC BID #1 box 06/23/14 Unknown Rx Lisinopril/Hydrochlorothiazide 1 each PO DAILY #30 tablet 06/23/14 Unknown Rx [Zestoretic 10-12.5 mg] Metoprolol [Lopressor TAB] 12.5 mg PO BID #60 tablet 06/23/14 Unknown Rx Syringe and Needle,Insulin,1Ml 1 each MC BID #1 box 06/23/14 Unknown Rx [Advocate Syringes] amLODIPine 10 mg PO DAILY #30 tab 06/23/14 Unknown Rx Amlodipine Besylate [Norvasc] 5 mg PO QDAY 30 Days #30 tablet 03/07/18 Unknown Rx Cyclobenzaprine [Flexeril] 10 mg PO TID PRN #15 tablet 03/07/18 Unknown Rx Ibuprofen [Motrin] 600 mg PO Q8H PRN #12 tablet 03/07/18 Unknown Rx carvediloL [Coreg] 25 mg PO BID 30 Days #60 tablet 03/07/18 Unknown Rx lisinopriL [Zestril TAB] 20 mg PO QDAY 30 Days #30 tablet 03/07/18 Unknown Rx Active Meds: Active Medications Acetaminophen (Acetaminophen 325 Mg Tab) 650 mg PO Q4H PRN PRN Reason: Pain MILD(1-3)/Fever >100.5/OTT Albuterol (Albuterol 2.5 Mg/3 Ml Nebu) 2.5 mg IH Q3HRT PRN PRN Reason: Shortness Of Breath Albuterol/Ipratropium (Ipratropium/Albuterol Sulfate 3 Ml Ampul.Neb) 1 ampul IH Q6HRT [facility] Last Admin: 09/22/20 14:20 Dose: 1 ampul Documented by: Atorvastatin Calcium (Atorvastatin 40 Mg Tab) 40 mg PO QHS [facility] Last Admin: 09/21/20 22:28 Dose: 40 mg Documented by: Carvedilol (Carvedilol 12.5 Mg Tab) 12.5 mg PO BID [facility] Cyclobenzaprine HCl (Cyclobenzaprine 10 Mg Tab) 10 mg PO TID PRN PRN Reason: Muscle Spasm Dextrose (Dextrose 50% In Water (25gm) 50 Ml Syringe) 0 ml IV Q30MIN PRN; Protocol PRN Reason: Hypoglycemia Docusate Sodium (Docusate Sodium 100 Mg Cap) 100 mg PO BID [facility] Last Admin: 09/22/20 11:02 Dose: 100 mg Documented by: Furosemide (Furosemide 40 Mg/4 Ml Inj) 40 mg IV BID@0600,1800 [facility] Last Admin: 09/22/20 06:00 Dose: 40 mg Documented by: Heparin Sodium (Porcine) (Heparin 10,000 Units/10 Ml Vial) 3,600 unit 40 unit/kg (3600 unit) IV Q6H PRN PRN Reason: Anti-Xa Assay < 0.1 units/ml Insulin Human Lispro (Insulin Lispro 100 Unit/Ml) 0 unit SUB-Q ACHS [facility]; Protocol Last Admin: 09/22/20 12:53 Dose: Not Given Documented by: Morphine Sulfate (Morphine 2 Mg/1 Ml Inj) 2 mg IV Q5MIN PRN PRN Reason: Chest Pain unrelieved by NTG Last Admin: 09/21/20 11:13 Dose: 2 mg Documented by: Nitroglycerin (Nitroglycerin 0.4 Mg Tab Subl) 0.4 mg SL .Q5MIN PRN PRN Reason: Chest Pain Ondansetron HCl (Ondansetron 4 Mg/2 Ml Inj) 4 mg IV Q6H PRN PRN Reason: Nausea And Vomiting Last Admin: 09/21/20 22:29 Dose: 4 mg Documented by: Oxycodone/Acetaminophen (Oxycodone /Acetaminophen 5-325mg Tab) 1 tab PO Q6H PRN PRN Reason: Pain, Moderate (4-6) Potassium Chloride (Potassium Chloride Er 10 Meq Tab) 10 meq PO QDAY [facility] Last Admin: 09/22/20 11:02 Dose: 10 meq Documented by: Sodium Chloride (Sodium Chloride 0.9% 10 Ml Flush Syringe) 10 ml IV BID [facility] Last Admin: 09/22/20 11:03 Dose: 10 ml Documented by: Sodium Chloride (Sodium Chloride 0.9% 10 Ml Flush Syringe) 10 ml IV PRN PRN PRN Reason: LINE FLUSH Review of Systems All systems: negative Exam - Constitutional Vitals: Temp Pulse Resp BP Pulse Ox 98.7 F 62 18 153/91 95 09/22/20 16:42 09/22/20 16:42 09/22/20 16:42 09/22/20 16:42 09/22/20 16:42 General appearance: Present: no acute distress - Neck Neck: Present: supple - Respiratory Respiratory effort: normal - Cardiovascular Rhythm: other (irregular) - Extremities Extremities: no ischemia, pulses intact (Palpable posterior tibial pulses bilaterally, palpable radial pulses bilaterally) - Abdominal General gastrointestinal: Present: soft, non-tender, other (Protuberant) Male genitourinary: Present: deferred - Rectal Rectal Exam: deferred Results - Labs CBC & Chem 7: 09/22/20 08:37 09/22/20 05:17 Labs: Abnormal lab results 09/21/20 09/21/20 09/21/20 Range/Units 16:23 18:06 20:13 Heparin Anti-Xa Level 2.00 H (0.3-0.7) U.I./ml BUN (9-20) mg/dL Glucose (75-100) mg/dL POC Glucose 219 H 180 H (70-105) mg/dL Troponin T (0.00-0.029) ng/mL 09/22/20 Range/Units 05:17 Heparin Anti-Xa Level (0.3-0.7) U.I./ml BUN 25 H (9-20) mg/dL Glucose 141 H (75-100) mg/dL POC Glucose (70-105) mg/dL Troponin T 0.157 H* D (0.00-0.029) ng/mL - Imaging and Cardiology CT scan - abdomen: image reviewed (Nonocclusive thrombus in the mid SMA, SMA is mildly dilated) Assessment and Plan The patient is a 60-year-old male with a history of CHF and atrial fibrillation who has nonocclusive thrombus in his SMA. He had severe pain and loose stools with oral intake which may be secondary to the SMA thrombus. He was initially on a heparin drip for anticoagulation to manage his underlying medical conditions however he began to have lower GI bleeding with the anticoagulation. At this time his abdominal exam is benign and there is no indication that he has necrotic bowel however the pain with eating, loose stools, and bleeding while on anticoagulation suggest that he may have ischemic bowel. I have recommended to the patient that he undergo a diagnostic angiogram with possible percutaneous mechanical thrombectomy of his SMA through a radial approach. Afterwards he would require anticoagulation. The patient expressed understanding and has agreed to proceed.
[2020-09-22] MEDS ORDERED: SODIUM CHLORIDE 0.9% 500 ML 500 ML ONE (19:51)
[2020-09-22] MEDS: HEPARIN/NS 5000 UNIT/500ML 1,000 ML IR ONE ×2 (19:57→20:14)
[2020-09-22] MEDS: MIDAZOLAM 2 MG/2 ML INJ ONE ×2 (19:58→20:08)
[2020-09-22] MEDS: SODIUM CHLORIDE 0.9% 500 ML 500 ML ONE ×2 (19:58→20:15)
[2020-09-22] MEDS: fentaNYL 100 MCG/2 ML INJ ONE ×2 (19:58→20:07)
[2020-09-22] MEDS: LIDOCAINE (2%) 20 MG/1 ML VIAL 20 ML MDV INFILTRATI ONE ×2 (19:59→20:09)
[2020-09-22] MEDS: VERAPAMIL 5 MG/2 ML INJ ONE ×2 (20:00→20:10)
[2020-09-22] MEDS: HEPARIN 10,000 UNITS/10 ML VIAL ONE ×4 (20:00→21:10)
[2020-09-22] MEDS: NITROGLYCERIN SYRINGE 3 ML ONE ×2 (20:00→20:15)
[2020-09-22] MEDS ORDERED: NITROGLYCERIN SYRINGE 3 ML ONE (20:47)
[2020-09-22] MEDS ORDERED: HEPARIN/NS 5000 UNIT/500ML 500 ML IR ONE (20:47)
[2020-09-22] MEDS ORDERED: HEPARIN/NS 5000 UNIT/500ML 1,000 ML IR ONE (20:50)
--- NOTE | 2020-09-22 21:27 | Operative Report ---
Operative Report Operative Report: Date of Procedure: 09/22/2020 Pre-operative Diagnosis: Acute SMA Embolus Post-operative Diagnosis: Same Procedure(s): 1. Ultrasound-Guided Access Left Radial Artery 2. Diagnostic Abdominal Aortogram (No Previous Films for Comparison) 3. Diagnostic Selective Superior Mesenteric Angiogram (No Previous Films for Comparison) 4. Percutaneous Mechanical Thrombectomy Of the Superior Mesenteric Artery with The Indigo Penumbra CAT 6 Aspiration Catheter 5. Radiologic Supervision with Interpretation 6. Monitored Moderate Sedation (Total Anesthesia Time: 87 Minutes) Surgeon: Joseph Louis M.D. Community Sports Coordinator: None Anesthesia: Monitored Moderate Sedation Total Anesthesia Time: 87 Minutes EBL: Minimal Counts: Correct Complications: None Condition: Stable Specimen: None Indication: The patient is a 60-year-old male with a history of CHF and atrial fibrillation who presented with complaints of shortness of breath. During his hospitalization he had an episode of severe abdominal pain associated with nausea and vomiting as well as multiple loose stools after eating a meal. A CTA of his abdomen and pelvis revealed nonocclusive thrombus involving his SMA. He had been placed on a heparin drip for his atrial fibrillation however that had been stopped secondary to bloody bowel movements. Given the abdominal pain, loose stools, and bloody bowel movements associated with the finding of SMA embolus it was felt that the patient was displaying signs of ischemic bowel. He was offered a diagnostic angiogram with possible percutaneous mechanical thrombectomy. He was given the risk, benefits, and alternative procedures and consented to the procedure. Angiographic Findings: The diagnostic aortogram revealed that the aorta was patent without significant flow-limiting stenosis, aneurysmal dilatation, or thrombus appreciated. The selective superior mesenteric artery angiogram revealed partially occlusive thrombus within the mid SMA, a jejunal branch of the SMA, the right colic artery, and near total occlusion of the ileocolic artery. After intervention there was no residual thrombus appreciated with brisk flow of contrast into all arteries however there was some spasm noted in the right colic artery. Description of Procedure: The patient was brought to the Knitting Machine Operator Helper and laid in supine position. After timeout was performed his left wrist was prepped and draped in normal sterile fashion. Ultrasound was used to identify the left radial artery and confirm patency. Once patency was confirmed the overlying skin and soft tissue was anesthetized with lidocaine. A 21-gauge micropuncture needle was used with ultrasound guidance to enter the left radial artery and a 0.018 micropuncture wire was advanced into the artery. A 5/6 [place] Slender Sheath was advanced into the artery by Seldinger technique after removing the needle. A radial cocktail including nitroglycerin, verapamil, and heparin was then slowly administered. A 0.035 Bentson wire and pigtail catheter were advanced into the thoracic aorta and were used to cannulate the descending aorta. The catheter and wire were advanced into the abdominal aorta and a diagnostic aortogram was performed in a lateral projection with the previously described findings. The Bentson wire was reinserted and an angled glide catheter was used to cannulate the superior mesenteric artery. A diagnostic superior mesenteric angiogram was performed with the previously described findings. I then advanced a 0.035 advantage wire into the mid superior mesenteric artery and exchanged the [place] Slender Sheath for a 6 [place] 105 cm Destination Sheath was then advanced into the proximal SMA, by Seldinger technique. At this point the patient was given an additional 3000 units of heparin IV. I then advanced The Indigo Penumbra CAT 6 into the ileocecal artery and after removing the advantage wire inserted the separator and began performing percutaneous mechanical thrombectomy of the ileocecal artery. After performing the thrombectomy I injected 600 mcg of nitroglycerin and then performed an angiogram revealing no residual thrombus and brisk flow of contrast into the ileocecal artery and distal branches. I then performed percutaneous mechanical thrombectomy with the device in the mid SMA and then reinserted the advantage wire through the the aspiration catheter and directed the catheter into the jejunal branch and performed thrombectomy. After performing thrombectomy and the jejunal branch I injected an additional 600 mcg of nitroglycerin was demonstrated no residual thrombus within the mid SMA or jejunal branch and brisk flow of contrast into the distal branches. I reinserted the advantage wire and directed into the right colic artery and then advanced the catheter into the artery and performed thrombectomy. After performing thrombectomy I injected an additional 600 mcg of nitroglycerin into the artery and performed an angiogram which revealed spasm in the artery however there was no residual thrombus and there was brisk flow of contrast into the distal branches. At this point I removed inserted the advantage wire into the mid SMA and remove the CAT 6 aspiration catheter. I then reinserted the introducer into the sheath and remove the 6 [place] 105 cm destination sheath from the left radial artery. I replaced the glide slender sheath by Seldinger technique. I remove the advantage wire and then the 6 [place] sheath was removed and manual pressure was held until hemostasis was achieved. A sterile pressure dressing was then applied to the left wrist and the patient was transported to his room in stable condition.
[2020-09-22] MEDS ORDERED: HEPARIN 10,000 UNITS/10 ML VIAL IV PRN (21:29)
[2020-09-22] MEDS: HEPARIN/ 0.45% NACL DRIP 25,000 UNIT/500 ML BAG IV SCH ×2 (22:00→22:04)
[2020-09-22] MEDS: carvediloL 12.5 MG TAB PO SCH (23:15)
[2020-09-22] MEDS ORDERED: ZOLPIDEM 5 MG TAB PO ONE (23:26)
[2020-09-22 23:52] LABS: Hematocrit 40.1 % (35.5-45.6); Hemoglobin 13.4 gm/dl (11.8-15.2)
[2020-09-23 00:18] LABS: INR 1.54 (0.87-1.13)
[2020-09-23 00:50] LABS: Partial Thromboplastin Time 159.5 Sec. (24.2-36.6)
[2020-09-23] MEDS: IPRATROPIUM/ALBUTEROL SULFATE 3 ML AMPUL.NEB IH SCH ×4 (02:15→19:56)
[2020-09-23 03:09] LABS: Calcium 8.4 mg/dL (8.4-10.2)
[2020-09-23 03:11] LABS: Basophils # (Auto) 0.1 K/mm3 (0.0-0.1); Basophils % (Auto) 0.7 % (0.0-1.8); Eosinophils # (Auto) 0.1 K/mm3 (0.0-0.4); Eosinophils % (Auto) 1.1 % (0.0-4.3); Hematocrit 39.5 % (35.5-45.6); Hemoglobin 13.2 gm/dl (11.8-15.2); Lymphocytes # (Auto) 1.9 K/mm3 (1.2-5.4); Lymphocytes % (Auto) 24.3 % (13.4-35.0); Mean Corpuscular HGB Conc 33 % (32-34); Mean Corpuscular Volume 85 fl (84-94); Monocytes % (Auto) 13.2 % (0.0-7.3); Platelet Count 221 K/mm3 (140-440); Red Blood Count 4.63 M/mm3 (3.65-5.03); Red Cell Distribution Width 15.5 % (13.2-15.2)
[2020-09-23] MEDS: FUROSEMIDE 40 MG/4 ML INJ IV SCH ×2 (05:52→17:19)
[2020-09-23] MEDS: INSULIN LISPRO 100 UNIT/ML SUB-Q SCH ×5 (08:44→21:55)
[2020-09-23] MEDS ORDERED: POTASSIUM CHLORIDE 10 MEQ 10 MEQ/100 ML BAG IV ONE (09:30)
[2020-09-23] MEDS: POTASSIUM CHLORIDE ER 10 MEQ TAB PO SCH (10:10)
[2020-09-23] MEDS: carvediloL 12.5 MG TAB PO SCH ×2 (10:10→21:54)
[2020-09-23] MEDS: DOCUSATE SODIUM 100 MG CAP PO SCH ×2 (10:11→21:55)
[2020-09-23] MEDS: D5W/0.9% NACL 1,000 ML IV SCH (10:16)
--- NOTE | 2020-09-23 10:48 | Progress Note ---
Assessment and Plan Overnight events noted. Vascular and GI recs noted. Heparin gtt resumed. Currently stable cardiac status. Cont present cardiac management. Plan for lexiscan MPI stress test in AM. NPO after MN. Assessment and plan reviewed with pt and he states he is agreeable. The patient has been seen in conjunction with Dr. Paty Powell who agrees with the assessment and plan of care. - Patient Problems (1) Acute HFrEF (heart failure with reduced ejection fraction) Current Visit: Yes Status: Acute (2) NICM (nonischemic cardiomyopathy) Current Visit: Yes Status: Chronic (3) Nonobstructive atherosclerosis of coronary artery Current Visit: Yes Status: Chronic (4) Uncontrolled hypertension Current Visit: Yes Status: Chronic (5) Diabetes Current Visit: Yes Status: Chronic (6) Paroxysmal atrial fibrillation Current Visit: Yes Status: Chronic (7) TONI (acute kidney injury) Current Visit: Yes Status: Acute (8) NSTEMI (non-ST elevated myocardial infarction) Current Visit: Yes Status: Acute Plan to address problem: suspect type II (9) Noncompliance with medication regimen Current Visit: Yes Status: Chronic (10) NSVT (nonsustained ventricular tachycardia) Current Visit: Yes Status: Acute (11) Automatic implantable cardioverter-defibrillator in situ Current Visit: Yes Status: Chronic (12) Mesenteric embolus Current Visit: Yes Status: Acute Subjective Date of service: 09/23/20 Principal diagnosis: HF Interval history: pt resting in bed, states he is feeling much better today. heparin gtt infusing. tele reviewed - in SR with HR 70s, short bouts of NSVT noted overnight, pt asymptomatic. Objective Last Vital Signs Temp 97.7 F 09/23/20 08:05 Pulse 66 09/23/20 10:10 Resp 18 09/23/20 08:05 BP 149/83 09/23/20 10:10 Pulse Ox 94 09/23/20 08:05 - Physical Examination General: No Apparent Distress HEENT: Positive: PERRL, Normocephaly, Mucus Membranes Moist Neck: Positive: neck supple, trachea midline Cardiac: Positive: Reg Rate and Rhythm, S1/S2 Neuro: Positive: Grossly Intact Abdomen: Positive: Soft. Negative: Tender Skin: Negative: Rash Musculoskeletal: No Pain Extremities: Absent: edema - Labs and Meds Coagulation 09/22/20 Range/Units 22:56 PT 18.5 H (12.2-14.9) Sec. INR 1.54 H (0.87-1.13) APTT 159.5 H* (24.2-36.6) Sec. CBC 09/22/20 09/23/20 Range/Units 22:56 02:41 WBC 7.7 (4.5-11.0) K/mm3 RBC 4.63 (3.65-5.03) M/mm3 Hgb 13.4 13.2 (11.8-15.2) gm/dl Hct 40.1 39.5 (35.5-45.6) % Plt Count 217 221 (140-440) K/mm3 Lymph # (Auto) 1.9 (1.2-5.4) K/mm3 [place] # (Auto) 1.0 H (0.0-0.8) K/mm3 Eos # (Auto) 0.1 (0.0-0.4) K/mm3 Baso # (Auto) 0.1 (0.0-0.1) K/mm3 Comprehensive Metabolic Panel 09/23/20 Range/Units 02:41 Sodium 140 (137-145) mmol/L Potassium 3.4 L (3.6-5.0) mmol/L Chloride 104.4 (98-107) mmol/L Carbon Dioxide 23 (22-30) mmol/L BUN 26 H (9-20) mg/dL Creatinine 1.5 H (0.8-1.3) mg/dL Glucose 108 H (75-100) mg/dL Calcium 8.4 (8.4-10.2) mg/dL - Imaging and Cardiology EKG: report reviewed, image reviewed Echo: report reviewed ( EF 20-25%, mild LVH, restrictive diastolic filling, pacemaker wire in RV, mod MR, mod pulm HTN with RVSP 48mmHg. ) - Telemetry EKG Rhythm: Sinus Rhythm - EKG Sinus rhythms and dysrhythmias: sinus rhythm AV and intraventricular conduction: intraventricular conducti
--- NOTE | 2020-09-23 11:05 | Progress Note ---
Assessment and Plan Patient will need to remain on anticoagulation for life. The etiology of his thrombus will need to be determined. Cardiac work-up currently underway. Subjective Date of service: 09/23/20 Principal diagnosis: HF, SMA thrombus Interval history: Patient status post embolectomy of SMA thrombus. Patient is doing well. His left radial bandages were removed. No significant bleeding noted on the bandages. The patient has a palpable pulse distal to his access site. He has no complaints of abdominal pain. The patient is hungry. Patient has an outpatient community theater actor however he is uncertain as to her name. Objective - Constitutional Vitals: Vital Signs - 12hr 09/22/20 09/23/20 09/23/20 23:06 00:00 03:41 Temperature 98.7 F 98.8 F Pulse Rate 56 L 57 L 63 Respiratory 16 16 Rate Blood Pressure 157/86 132/85 O2 Sat by Pulse 98 98 Oximetry 09/23/20 09/23/20 08:05 10:10 Temperature 97.7 F Pulse Rate 66 66 Respiratory 18 Rate Blood Pressure 149/83 149/83 O2 Sat by Pulse 94 Oximetry General appearance: Present: no acute distress - EENT Eyes: EOM intact ENT: hearing intact - Neck Neck: supple, normal ROM - Respiratory Respiratory effort: normal - Gastrointestinal General gastrointestinal: Present: non-tender Rectal Exam: deferred - Genitourinary Male genitourinary: deferred - Psychiatric Psychiatric: appropriate mood/affect, cooperative - Labs CBC & Chem 7: 09/23/20 02:41 09/23/20 02:41 Labs: Abnormal lab results 09/22/20 09/22/20 09/22/20 Range/Units 08:00 11:16 16:43 RDW (13.2-15.2) % [place] % (Auto) (0.0-7.3) % [place] # (Auto) (0.0-0.8) K/mm3 PT (12.2-14.9) Sec. INR (0.87-1.13) APTT (24.2-36.6) Sec. Heparin Anti-Xa Level (0.3-0.7) U.I./ml Potassium (3.6-5.0) mmol/L BUN (9-20) mg/dL Creatinine (0.8-1.3) mg/dL Glucose (75-100) mg/dL POC Glucose 156 H 186 H 154 H (70-105) mg/dL 09/22/20 09/23/20 09/23/20 Range/Units 22:56 02:41 02:41 RDW 15.5 H (13.2-15.2) % [place] % (Auto) 13.2 H (0.0-7.3) % [place] # (Auto) 1.0 H (0.0-0.8) K/mm3 PT 18.5 H (12.2-14.9) Sec. INR 1.54 H (0.87-1.13) APTT 159.5 H* (24.2-36.6) Sec. Heparin Anti-Xa Level (0.3-0.7) U.I./ml Potassium 3.4 L (3.6-5.0) mmol/L BUN 26 H (9-20) mg/dL Creatinine 1.5 H (0.8-1.3) mg/dL Glucose 108 H (75-100) mg/dL POC Glucose (70-105) mg/dL 09/23/20 Range/Units 02:41 RDW (13.2-15.2) % [place] % (Auto) (0.0-7.3) % [place] # (Auto) (0.0-0.8) K/mm3 PT (12.2-14.9) Sec. INR (0.87-1.13) APTT (24.2-36.6) Sec. Heparin Anti-Xa Level 1.09 H (0.3-0.7) U.I./ml Potassium (3.6-5.0) mmol/L BUN (9-20) mg/dL Creatinine (0.8-1.3) mg/dL Glucose (75-100) mg/dL POC Glucose (70-105) mg/dL Medications & Allergies - Medications Allergies/Adverse Reactions: Allergies No Known Allergies Allergy (Unverified 06/22/14 19:54) Home Medications: Home Medications Medication Instructions Recorded Confirmed Last Taken Type Insulin NPH/Regular [Novolin 70/30] 17 unit SQ BIDDIAB #1 vial 06/23/14 Unknown Rx Lancets [Glucocom Lancets] 1 each MC BID #1 box 06/23/14 Unknown Rx Lisinopril/Hydrochlorothiazide 1 each PO DAILY #30 tablet 06/23/14 Unknown Rx [Zestoretic 10-12.5 mg] Metoprolol [Lopressor TAB] 12.5 mg PO BID #60 tablet 06/23/14 Unknown Rx Syringe and Needle,Insulin,1Ml 1 each MC BID #1 box 06/23/14 Unknown Rx [Advocate Syringes] amLODIPine 10 mg PO DAILY #30 tab 06/23/14 Unknown Rx Amlodipine Besylate [Norvasc] 5 mg PO QDAY 30 Days #30 tablet 03/07/18 Unknown Rx Cyclobenzaprine [Flexeril] 10 mg PO TID PRN #15 tablet 03/07/18 Unknown Rx Ibuprofen [Motrin] 600 mg PO Q8H PRN #12 tablet 03/07/18 Unknown Rx carvediloL [Coreg] 25 mg PO BID 30 Days #60 tablet 03/07/18 Unknown Rx lisinopriL [Zestril TAB] 20 mg PO QDAY 30 Days #30 tablet 03/07/18 Unknown Rx Active Medications: Generic Name Dose Route Start Last Admin Trade Name Freq PRN Reason Stop Dose Admin Acetaminophen 650 mg 09/20/20 22:03 Acetaminophen 325 Mg Tab PO Q4H PRN Pain MILD(1-3)/Fever >100.5/OTT Albuterol 2.5 mg 09/20/20 22:03 Albuterol 2.5 Mg/3 Ml Nebu IH Q3HRT PRN Shortness Of Breath Albuterol/Ipratropium 1 ampul 09/21/20 02:00 09/23/20 02:15 Ipratropium/Albuterol Sulfate 3 Ml Ampul.Neb IH Not Given Q6HRT WAYNE Aspirin 81 mg 09/24/20 10:00 Aspirin 81 Mg Tab Chew PO QDAY WAYNE Atorvastatin Calcium 40 mg 09/21/20 22:00 09/22/20 23:15 Atorvastatin 40 Mg Tab PO Not Given QHS WAYNE Carvedilol 12.5 mg 09/22/20 22:00 09/23/20 10:10 Carvedilol 12.5 Mg Tab PO 12.5 mg BID WAYNE Administration Cyclobenzaprine HCl 10 mg 09/21/20 09:00 Cyclobenzaprine 10 Mg Tab PO TID PRN Muscle Spasm Dextrose 0 ml 09/20/20 22:03 Dextrose 50% In Water (25gm) 50 Ml Syringe IV Q30MIN PRN Hypoglycemia Protocol Docusate Sodium 100 mg 09/21/20 10:00 09/23/20 10:11 Docusate Sodium 100 Mg Cap PO Not Given BID WAYNE Furosemide 40 mg 09/21/20 06:00 09/23/20 05:52 Furosemide 40 Mg/4 Ml Inj IV 40 mg BID@0600,1800 WAYNE Administration Heparin Sodium/Sodium Chloride 25,000 unit in 500 mls @ 26 mls/hr 09/22/20 22:00 09/23/20 05:50 Heparin/ 0.45% Nacl-25,000 Unit/500 Ml IV 1,100 units/hr TITR WAYNE 22 mls/hr Titration Protocol 1,300 UNITS/HR Dextrose/Sodium Chloride 1,000 mls @ 42 mls/hr 09/23/20 08:00 09/23/20 10:16 D5ns IV 42 mls/hr DIRECT WAYNE Administration Insulin Human Lispro 0 unit 09/21/20 07:30 09/23/20 08:44 Insulin Lispro 100 Unit/Ml SUB-Q Not Given ACHS [facility] Protocol Morphine Sulfate 2 mg 09/20/20 22:01 09/21/20 11:13 Morphine 2 Mg/1 Ml Inj IV 2 mg Q5MIN PRN Administration Chest Pain unrelieved by NTG Nitroglycerin 0.4 mg 09/20/20 22:01 Nitroglycerin 0.4 Mg Tab Subl SL .Q5MIN PRN Chest Pain Ondansetron HCl 4 mg 09/20/20 22:03 09/21/20 22:29 Ondansetron 4 Mg/2 Ml Inj IV 4 mg Q6H PRN Administration Nausea And Vomiting Oxycodone/Acetaminophen 1 tab 09/20/20 22:03 Oxycodone /Acetaminophen 5-325mg Tab PO Q6H PRN Pain, Moderate (4-6) Potassium Chloride 10 meq 09/21/20 10:00 09/23/20 10:10 Potassium Chloride Er 10 Meq Tab PO 10 meq QDAY WAYNE Administration Sodium Chloride 10 ml 09/21/20 10:00 09/23/20 10:11 Sodium Chloride 0.9% 10 Ml Flush Syringe IV 10 ml BID WAYNE Administration Sodium Chloride 10 ml 09/20/20 22:03 Sodium Chloride 0.9% 10 Ml Flush Syringe IV PRN PRN LINE FLUSH HEART Score - HEART Score EKG: Normal Age: 45-65 Risk factors: 1-2 risk factors Troponin: Troponin T 0.157 ng/mL (0.00-0.029) H* D 09/22/20 05:17 Troponin: 1-3x normal limit
--- NOTE | 2020-09-23 17:21 | Progress Note ---
Assessment and Plan 1. Rectal bleed - history given to me is inconsistent with this, and no clinical evidence. Pt seemed to have transient process, possibly related to showering emboli. Hgb stable. Will check stool for occult blood, but at this point, NO contraindication to anticoagulation. - check stool for occult blood - no plans for evaluation at this point - f/u with GI as an outpatient. 2. SMA thrombosis - s/p thrombectomy. Doing well. Embolic vs thrombotic. Regardless, pt was on Xarelto prior to 4 months ago, and needs to be on anticoagulation, to be directed as per Vascular or Cardiology. No further GI recommendations. Will sign off. Thanks. Subjective Date of service: 09/23/20 Principal diagnosis: HF, SMA thrombus Interval history: Pt doing well. No complaints. SMA thrombectomy yesterday noted. Pt had a normal brown stool today. Cristian po well. Objective - Constitutional Vitals: Vital Signs - 12hr 09/23/20 09/23/20 09/23/20 08:00 08:05 08:45 Temperature 97.7 F Pulse Rate 67 66 Pulse Rate [ 90 Anterior Bilateral Throughout] Respiratory 18 Rate Respiratory 18 Rate [Anterior Bilateral Throughout] Blood Pressure 149/83 Blood Pressure [Right] O2 Sat by Pulse 94 98 Oximetry 09/23/20 09/23/20 09/23/20 10:10 13:48 14:03 Temperature 98.8 F Pulse Rate 66 70 Pulse Rate [ 75 Anterior Bilateral Throughout] Respiratory 18 Rate Respiratory 16 Rate [Anterior Bilateral Throughout] Blood Pressure 149/83 Blood Pressure 134/75 [Right] O2 Sat by Pulse 95 Oximetry 09/23/20 14:58 Temperature 98.0 F Pulse Rate 75 Pulse Rate [ Anterior Bilateral Throughout] Respiratory 18 Rate Respiratory Rate [Anterior Bilateral Throughout] Blood Pressure 143/88 Blood Pressure [Right] O2 Sat by Pulse 97 Oximetry General appearance: Present: no acute distress - EENT Eyes: PERRL, EOM intact ENT: hearing intact - Respiratory Respiratory effort: normal - Gastrointestinal General gastrointestinal: Present: soft, non-tender - Labs CBC & Chem 7: 09/23/20 02:41 09/23/20 02:41 Labs: Abnormal lab results 09/22/20 09/22/20 09/22/20 Range/Units 08:00 11:16 16:43 RDW (13.2-15.2) % [place] % (Auto) (0.0-7.3) % [place] # (Auto) (0.0-0.8) K/mm3 PT (12.2-14.9) Sec. INR (0.87-1.13) APTT (24.2-36.6) Sec. Heparin Anti-Xa Level (0.3-0.7) U.I./ml Potassium (3.6-5.0) mmol/L BUN (9-20) mg/dL Creatinine (0.8-1.3) mg/dL Glucose (75-100) mg/dL POC Glucose 156 H 186 H 154 H (70-105) mg/dL 09/22/20 09/23/20 09/23/20 Range/Units 22:56 02:41 02:41 RDW 15.5 H (13.2-15.2) % [place] % (Auto) 13.2 H (0.0-7.3) % [place] # (Auto) 1.0 H (0.0-0.8) K/mm3 PT 18.5 H (12.2-14.9) Sec. INR 1.54 H (0.87-1.13) APTT 159.5 H* (24.2-36.6) Sec. Heparin Anti-Xa Level (0.3-0.7) U.I./ml Potassium 3.4 L (3.6-5.0) mmol/L BUN 26 H (9-20) mg/dL Creatinine 1.5 H (0.8-1.3) mg/dL Glucose 108 H (75-100) mg/dL POC Glucose (70-105) mg/dL 09/23/20 09/23/20 09/23/20 Range/Units 02:41 06:58 08:04 RDW (13.2-15.2) % [place] % (Auto) (0.0-7.3) % [place] # (Auto) (0.0-0.8) K/mm3 PT (12.2-14.9) Sec. INR (0.87-1.13) APTT (24.2-36.6) Sec. Heparin Anti-Xa Level 1.09 H (0.3-0.7) U.I./ml Potassium (3.6-5.0) mmol/L BUN (9-20) mg/dL Creatinine (0.8-1.3) mg/dL Glucose (75-100) mg/dL POC Glucose 140 H 130 H (70-105) mg/dL 09/23/20 09/23/20 Range/Units 12:09 16:12 RDW (13.2-15.2) % [place] % (Auto) (0.0-7.3) % [place] # (Auto) (0.0-0.8) K/mm3 PT (12.2-14.9) Sec. INR (0.87-1.13) APTT (24.2-36.6) Sec. Heparin Anti-Xa Level (0.3-0.7) U.I./ml Potassium (3.6-5.0) mmol/L BUN (9-20) mg/dL Creatinine (0.8-1.3) mg/dL Glucose (75-100) mg/dL POC Glucose 199 H 186 H (70-105) mg/dL Medications & Allergies - Medications Allergies/Adverse Reactions: Allergies No Known Allergies Allergy (Unverified 06/22/14 19:54) Home Medications: Home Medications Medication Instructions Recorded Confirmed Last Taken Type Insulin NPH/Regular [Novolin 70/30] 17 unit SQ BIDDIAB #1 vial 06/23/14 Unknown Rx Lancets [Glucocom Lancets] 1 each MC BID #1 box 06/23/14 Unknown Rx Lisinopril/Hydrochlorothiazide 1 each PO DAILY #30 tablet 06/23/14 Unknown Rx [Zestoretic 10-12.5 mg] Metoprolol [Lopressor TAB] 12.5 mg PO BID #60 tablet 06/23/14 Unknown Rx Syringe and Needle,Insulin,1Ml 1 each MC BID #1 box 06/23/14 Unknown Rx [Advocate Syringes] amLODIPine 10 mg PO DAILY #30 tab 06/23/14 Unknown Rx Amlodipine Besylate [Norvasc] 5 mg PO QDAY 30 Days #30 tablet 03/07/18 Unknown Rx Cyclobenzaprine [Flexeril] 10 mg PO TID PRN #15 tablet 03/07/18 Unknown Rx Ibuprofen [Motrin] 600 mg PO Q8H PRN #12 tablet 03/07/18 Unknown Rx carvediloL [Coreg] 25 mg PO BID 30 Days #60 tablet 03/07/18 Unknown Rx lisinopriL [Zestril TAB] 20 mg PO QDAY 30 Days #30 tablet 03/07/18 Unknown Rx Active Medications: Generic Name Dose Route Start Last Admin Trade Name Freq PRN Reason Stop Dose Admin Acetaminophen 650 mg 09/20/20 22:03 Acetaminophen 325 Mg Tab PO Q4H PRN Pain MILD(1-3)/Fever >100.5/OTT Albuterol 2.5 mg 09/20/20 22:03 Albuterol 2.5 Mg/3 Ml Nebu IH Q3HRT PRN Shortness Of Breath Albuterol/Ipratropium 1 ampul 09/21/20 02:00 09/23/20 14:03 Ipratropium/Albuterol Sulfate 3 Ml Ampul.Neb IH 1 ampul Q6HRT WAYNE Administration Aspirin 81 mg 09/24/20 10:00 Aspirin 81 Mg Tab Chew PO QDAY WAYNE Atorvastatin Calcium 40 mg 09/21/20 22:00 09/22/20 23:15 Atorvastatin 40 Mg Tab PO Not Given QHS WAYNE Carvedilol 12.5 mg 09/22/20 22:00 09/23/20 10:10 Carvedilol 12.5 Mg Tab PO 12.5 mg BID WAYNE Administration Cyclobenzaprine HCl 10 mg 09/21/20 09:00 Cyclobenzaprine 10 Mg Tab PO TID PRN Muscle Spasm Dextrose 0 ml 09/20/20 22:03 Dextrose 50% In Water (25gm) 50 Ml Syringe IV Q30MIN PRN Hypoglycemia Protocol Docusate Sodium 100 mg 09/21/20 10:00 09/23/20 10:11 Docusate Sodium 100 Mg Cap PO Not Given BID WAYNE Furosemide 40 mg 09/21/20 06:00 09/23/20 05:52 Furosemide 40 Mg/4 Ml Inj IV 40 mg BID@0600,1800 WAYNE Administration Heparin Sodium/Sodium Chloride 25,000 unit in 500 mls @ 26 mls/hr 09/22/20 22:00 09/23/20 05:50 Heparin/ 0.45% Nacl-25,000 Unit/500 Ml IV 1,100 units/hr TITR WAYNE 22 mls/hr Titration Protocol 1,300 UNITS/HR Dextrose/Sodium Chloride 1,000 mls @ 42 mls/hr 09/23/20 08:00 09/23/20 10:16 D5ns IV 42 mls/hr DIRECT WAYNE Administration Insulin Human Lispro 0 unit 09/21/20 07:30 09/23/20 13:08 Insulin Lispro 100 Unit/Ml SUB-Q 2 unit ACHS WAYNE Administration Protocol Morphine Sulfate 2 mg 09/20/20 22:01 09/21/20 11:13 Morphine 2 Mg/1 Ml Inj IV 2 mg Q5MIN PRN Administration Chest Pain unrelieved by NTG Nitroglycerin 0.4 mg 09/20/20 22:01 Nitroglycerin 0.4 Mg Tab Subl SL .Q5MIN PRN Chest Pain Ondansetron HCl 4 mg 09/20/20 22:03 09/21/20 22:29 Ondansetron 4 Mg/2 Ml Inj IV 4 mg Q6H PRN Administration Nausea And Vomiting Oxycodone/Acetaminophen 1 tab 09/20/20 22:03 Oxycodone /Acetaminophen 5-325mg Tab PO Q6H PRN Pain, Moderate (4-6) Potassium Chloride 10 meq 09/21/20 10:00 09/23/20 10:10 Potassium Chloride Er 10 Meq Tab PO 10 meq QDAY WAYNE Administration Sodium Chloride 10 ml 09/21/20 10:00 09/23/20 10:11 Sodium Chloride 0.9% 10 Ml Flush Syringe IV 10 ml BID WAYNE Administration Sodium Chloride 10 ml 09/20/20 22:03 Sodium Chloride 0.9% 10 Ml Flush Syringe IV PRN PRN LINE FLUSH HEART Score - HEART Score EKG: Normal Age: 45-65 Risk factors: 1-2 risk factors Troponin: Troponin T 0.157 ng/mL (0.00-0.029) H* D 09/22/20 05:17 Troponin: 1-3x normal limit
[2020-09-23] MEDS: HEPARIN/ 0.45% NACL DRIP 25,000 UNIT/500 ML BAG IV SCH (17:25)
--- NOTE | 2020-09-23 17:51 | Progress Note ---
Assessment and Plan Assessment and plan: Acute congestive heart failure exacerbation -Secondary to nonischemic cardiomyopathy -s/p AICD -09/20 proBNP 60944 -Cardiology consulted, appreciate recommendations -09/20 CXR shows mild congestive heart failure -IV diuretics, aspirin, RENEE, beta-luis armando -09/21 echocardiogram pending Superior mesenteric artery thrombus -09/21 patient developed severe abd cramping and noted BRBPR (per patient) however upon further investigation patient did not have BRBPR and instead he had slight blood tinge to stool -09/22 CT abd/pelvis with contrast shows multiple nonocclusive filling defects in distal branches of the superior mesenteric artery, no findings to suggest acute bowel ischemia. However, obviously, this finding does place the patient risk of future acute ischemic events. And nonobstructing right intrarenal stone with mild pulmonary edema in the visualized lung bases. -GI, Surgery and vascular surgery consulted, appreciate recommendations -09/22 occult stool pending -S/p superior mesenteric artery thrombectomy via radial artery approach with vascular surgery -Patient was restarted on heparin drip on 09/22 -Vascular surgery and gastroenterology recommends lifelong anticoagulation for atrial fibrillation and believes the patient was showering emboli from noncompliance with Eliquis. Acute kidney injury, acute -Patient presented with a creatinine/BUN of 1.7/ -On last visit 05/2014 BUN/creatinine 14/1.4 -09/21 BUN/creatinine 30/1.6, 09/22 BUN/Cr 25/1.3 -Trend BMP -Strict intake and output -Avoid nephrotoxic medications -Renally dose medications -Daily weights -Consider nephrology consult if not improving -Secondary to vasomotor nephropathy Acute respiratory failure with hypoxia, acute -Presented with shortness of breath -Supplemental oxygen as needed -SPO2 monitoring -Likely secondary to acute CHF exacerbation Transaminitis, acute -Admit AST 42, ALT 65 -Likely increased in the setting of acute CHF exacerbation -Trend LFTs Elevated troponin -Troponin 0.224, 0.217, 0.244 -Cardiology consulted -As needed morphine pain and nitroglycerin Paroxysmal Atrial Fibrillation -Home medications include Entresto, Lasix, carvedilol, Xarelto, potassium -Rate control with BB -Anticoagulation with heparin drip but later he reportedly developed BRBPR and was stopped by cardiology -Per gastroenterology and vascular surgery patient will need lifelong anticoagulation which we will leave up to cardiology to prescribe Diabetes mellitus, -09/21 hemoglobin A1c 9.3 -Per patient he has not been taking medications and attempts to control blood glucose by diet -Patient does not have a blood glucose monitor at home -SSI -Accu-Cheks AC at bedtime -CC cardiac diet while not NPO Hypertension, chronic -Home medications include Entresto, Lasix, carvedilol, potassium -Blood pressure monitor per protocol -Hydralazine for SBP greater than 160 as needed CAD, chronic -Statin therapy Noncompliance chronic -Patient stated he has been out of his medications for approximately 2 months due to relocation -Patient counseled on importance of compliance with medical treatment and maintaining a PCP -CM consulted for social issues DVT prophylaxis -GI prophylaxis -Systemic anticoagulation with heparin drip -SCDs to bilateral result in bed History Interval history: The pt is a 60-year-old male with Congestive heart failure, nonobstructive CAD via [facility] in [place], AICD in situ (placed in 2017 in [place]), HTN, DM, paroxysmal atrial fibrillation (noncompliant with home Xarelto) and with noncomplience due to to relocation who presented with progressively worsening SOB, MURPHY, orthopnea, PND, abdominal swelling and 5 to 8 pound weight gain for 4 days prior to arrival on 09/20. Patient was admitted to the hospital service with acute exacerbation of congestive heart failure, elevated troponins and acute kidney injury. Cardiology was consulted. Patient underwent a superior mesenteric artery thrombectomy vascular surgery on 09/23. No acute events reported overnight. Patient was slightly hypokalemic which was repleted. Cardiology plans to perform a Lexiscan stress test in the a.m. and he will be n.p.o. after midnight. Patient also developed acute kidney injury and will receive IV hydration. We will recheck BMP in the a.m. Patient had a 6 beat run of of ventricular tachycardia overnight however remained asymptomatic and cardiology is aware. 09/22: echocardiogram ,s upplemental oxygenation. Started on heparin drip and intubated developed bright red blood per rectum and severe abdominal pain. CT abdomen/pelvis with oral contrast was ordered. 09/23: Patient CT abdomen/pelvis with oral contrast was not done due to inability to tolerate oral contrast. This morning we ordered a CT abdomen/pelvis with IV contrast and it showed nonocclusive filling deficits in the superior mesenteric artery. Surgery, GI and vascular surgery were consulted. Cardiology is planning a stress test in the morning. Hospitalist Physical - Constitutional Vitals: Temp Pulse Resp BP Pulse Ox 98.0 F 75 18 143/88 97 09/23/20 14:58 09/23/20 14:58 09/23/20 14:58 09/23/20 14:58 09/23/20 14:58 General appearance: Present: no acute distress - EENT Eyes: Present: PERRL, EOM intact ENT: hearing intact - Neck Neck: Present: supple, normal ROM - Respiratory Respiratory effort: normal Respiratory: bilateral: CTA - Cardiovascular Rhythm: regular Heart Sounds: Present: S1 & S2. Absent: systolic murmur, diastolic murmur - Extremities Extremities: no ischemia, pulses intact, pulses symmetrical, No edema, normal temperature, normal color, Full ROM Peripheral Pulses: within normal limits - Abdominal General gastrointestinal: soft, non-tender, non-distended, normal bowel sounds - Integumentary Integumentary: Present: clear, warm, dry - Psychiatric Psychiatric: appropriate mood/affect, cooperative - Neurologic Neurologic: CNII-XII intact, no focal deficits, moves all extremities HEART Score - HEART Score EKG: Normal Age: 45-65 Risk factors: 1-2 risk factors Troponin: Troponin T 0.157 ng/mL (0.00-0.029) H* D 09/22/20 05:17 Troponin: 1-3x normal limit Results - Labs CBC & Chem 7: 09/23/20 02:41 09/23/20 02:41 Labs: Laboratory Last Values WBC 7.7 K/mm3 (4.5-11.0) 09/23/20 02:41 RBC 4.63 M/mm3 (3.65-5.03) 09/23/20 02:41 Hgb 13.2 gm/dl (11.8-15.2) 09/23/20 02:41 Hct 39.5 % (35.5-45.6) 09/23/20 02:41 MCV 85 fl (84-94) 09/23/20 02:41 MCH 28 pg (28-32) 09/23/20 02:41 MCHC 33 % (32-34) 09/23/20 02:41 RDW 15.5 % (13.2-15.2) H 09/23/20 02:41 Plt Count 221 K/mm3 (140-440) 09/23/20 02:41 Lymph % (Auto) 24.3 % (13.4-35.0) 09/23/20 02:41 [place] % (Auto) 13.2 % (0.0-7.3) H 09/23/20 02:41 Eos % (Auto) 1.1 % (0.0-4.3) 09/23/20 02:41 Baso % (Auto) 0.7 % (0.0-1.8) 09/23/20 02:41 Lymph # (Auto) 1.9 K/mm3 (1.2-5.4) 09/23/20 02:41 [place] # (Auto) 1.0 K/mm3 (0.0-0.8) H 09/23/20 02:41 Eos # (Auto) 0.1 K/mm3 (0.0-0.4) 09/23/20 02:41 Baso # (Auto) 0.1 K/mm3 (0.0-0.1) 09/23/20 02:41 Seg Neutrophils % 60.7 % (40.0-70.0) 09/23/20 02:41 Seg Neutrophils # 4.7 K/mm3 (1.8-7.7) 09/23/20 02:41 PT 18.5 Sec. (12.2-14.9) H 09/22/20 22:56 INR 1.54 (0.87-1.13) H 09/22/20 22:56 APTT 159.5 Sec. (24.2-36.6) H* 09/22/20 22:56 Heparin Anti-Xa Level 0.61 U.I./ml (0.3-0.7) 09/23/20 13:54 Sodium 140 mmol/L (137-145) 09/23/20 02:41 Potassium 3.4 mmol/L (3.6-5.0) L 09/23/20 02:41 Chloride 104.4 mmol/L (98-107) 09/23/20 02:41 Carbon Dioxide 23 mmol/L (22-30) 09/23/20 02:41 Anion Gap 16 mmol/L 09/23/20 02:41 BUN 26 mg/dL (9-20) H 09/23/20 02:41 Creatinine 1.5 mg/dL (0.8-1.3) H 09/23/20 02:41 Estimated GFR 58 ml/min 09/23/20 02:41 BUN/Creatinine Ratio 17 % 09/23/20 02:41 Glucose 108 mg/dL (75-100) H 09/23/20 02:41 POC Glucose 186 mg/dL (70-105) H 09/23/20 16:12 Hemoglobin A1c 9.3 % (4-6) H 09/21/20 05:03 Lactic Acid 1.90 mmol/L (0.7-2.0) 09/22/20 13:10 Calcium 8.4 mg/dL (8.4-10.2) 09/23/20 02:41 Phosphorus 3.80 mg/dL (2.5-4.5) 09/23/20 02:41 Magnesium 2.20 mg/dL (1.7-2.3) 09/23/20 02:41 Total Bilirubin 1.00 mg/dL (0.1-1.2) 09/20/20 18:43 AST 42 units/L (5-40) H 09/20/20 18:43 ALT 65 units/L (7-56) H 09/20/20 18:43 Alkaline Phosphatase 93 units/L (35-129) 09/20/20 18:43 Troponin T 0.157 ng/mL (0.00-0.029) H* D 09/22/20 05:17 NT-Pro-B Natriuret Pep 3241 pg/mL (0-900) H 09/20/20 18:43 Total Protein 7.8 g/dL (6.3-8.2) 09/20/20 18:43 Albumin 4.3 g/dL (3.9-5) 09/20/20 18:43 Albumin/Globulin Ratio 1.2 % 09/20/20 18:43 Triglycerides 111 mg/dL (2-149) 09/20/20 18:43 Cholesterol 219 mg/dL (50-199) H 09/20/20 18:43 LDL Cholesterol Direct 165 mg/dL (50-130) H 09/20/20 18:43 HDL Cholesterol 48 mg/dL (40-59) 09/20/20 18:43 Cholesterol/HDL Ratio 4.56 % 09/20/20 18:43 - Diagnostic Impressions Diagnostic Impressions: Echocardiogram 09/20/20 22:02 Transthoracic Echocardiogram Indication: Dyspnea BP: 126/72 HR: 75 Conclusions *The left ventricular chamber size is severely dilated. *Mild concentric left ventricular hypertrophy is observed. *Global left ventricular systolic function is severely decreased. *The estimated ejection fraction is 20-25%. *The left ventricular diastolic filling pattern is restrictive. *A pacemaker wire is visualized in the right ventricle. *There is moderate mitral regurgitation. *There is evidence of moderate pulmonary hypertension. *There is no pericardial effusion. Findings Left Ventricle: The left ventricular chamber size is severely dilated. Mild concentric left ventricular hypertrophy is observed. Global left ventricular systolic function is severely decreased. The estimated ejection fraction is 20-25%. The left ventricular diastolic filling pattern is restrictive. Right Ventricle: The right ventricular cavity size is normal. The right ventricular global systolic function is mildly reduced. A pacemaker wire is visualized in the right ventricle. Right Atrium: The right atrial cavity size is normal. A pacemaker wire is visualized in the right atrium. Aortic Valve: Mild aortic leaflet calcification is visualized. There is no evidence of aortic regurgitation. There is no evidence of aortic stenosis. Mitral Valve: The mitral valve leaflets are mildly thickened. There is moderate mitral regurgitation. Tricuspid Valve: The tricuspid valve leaflets are normal. There is mild tricuspid regurgitation. The right ventricular systolic pressure is calculated at 48 mmHg. There is evidence of moderate pulmonary hypertension. Pulmonic Valve: The pulmonic valve appears normal. There is trace pulmonic regurgitation. Pericardium: There is no pericardial effusion. Aorta: The aorta appears normal. Venous: The inferior vena cava appears normal. Measurements Chambers 2D Name Value Normal Range IVSd (2D) 1.11 cm (0.6 - 1.1) LVPWd (2D) 1.14 cm (0.6 - 1.1) LVIDd (2D) 6.6 cm (3.7 - 5.6) LVIDs (2D) 5.98 cm (2 - 3.8) LV FS (2D) 9.38 % - EF Teichholz (2D) 20.09 % - Ao root diameter (2D) 3 cm (2 - 3.7) Volumes/Mass Name Value Normal Range LA ESV SP 4CH (A/L) 66.11 ml - LA ESV SP 2CH (A/L) 82.67 ml - LA ESV BP (A/L) 77.05 ml - LA ESV BP (A/L) index 35.84 ml/m2 - LA ESV SP 4CH (MOD) 62.68 ml - LA ESV SP 2CH (MOD) 79.67 ml - LA ESV BP (MOD) 73.51 ml - LA ESV BP (MOD) index 34.19 ml/m2 - Diastolic/Systolic Function Name Value Normal Range MV E-wave Vmax 0.86 m/sec - MV deceleration time 144.77 msec - MV A-wave Vmax 0.33 m/sec - MV E:A ratio 2.65 ratio - Aortic Valve Name Value Normal Range AV Vmax 1.42 m/sec - AV VTI 25.08 cm - AV peak gradient 8.01 mmHg - AV mean gradient 4.23 mmHg - LVOT diameter 2.01 cm - LVOT Vmax 0.89 m/sec - LVOT VTI 14.93 cm - LVOT peak gradient 3.17 mmHg - LVOT mean gradient 1.83 mmHg - SV LVOT 47.41 ml - MARY ANN (continuity Vmax) 2 cm2 - MARY ANN (continuity VTI) 1.89 cm2 - Mitral Valve Name Value Normal Range MV Vmax 1.04 m/sec - MV VTI 27.77 cm - MV peak gradient 4.3 mmHg - MV mean gradient 1.92 mmHg - MR volume (PISA) 83.6 ml - MR flow (PISA) 265.21 ml/sec - MR ERO 0.49 cm2 - MR PISA radius 1.17 cm - MR alias Vmax 30.71 cm/sec - MVA (continuity VTI) 1.71 cm2 - Tricuspid Valve Name Value Normal Range TR Vmax 3.17 m/sec - TR peak gradient 40 mmHg - RAP 8 mmHg - RVSP 48 mmHg - IVC diameter 1.68 cm (1.2 - 2.3) Pulmonic Valve/Qp:Qs Name Value Normal Range PV Vmax 0.75 m/sec - PV peak gradient 2.26 mmHg - PV acceleration time 110.37 msec - Duron/IV: Voiding Method Toilet IV Catheter Type [Right INT / Saline Lock Antecubital] Active Medications - Current Medications Current Medications: Generic Name Dose Route Start Last Admin Trade Name Freq PRN Reason Stop Dose Admin Acetaminophen 650 mg 09/20/20 22:03 Acetaminophen 325 Mg Tab PO Q4H PRN Pain MILD(1-3)/Fever >100.5/OTT Albuterol 2.5 mg 09/20/20 22:03 Albuterol 2.5 Mg/3 Ml Nebu IH Q3HRT PRN Shortness Of Breath Albuterol/Ipratropium 1 ampul 09/21/20 02:00 09/23/20 14:03 Ipratropium/Albuterol Sulfate 3 Ml Ampul.Neb IH 1 ampul Q6HRT WAYNE Administration Aspirin 81 mg 09/24/20 10:00 Aspirin 81 Mg Tab Chew PO QDAY WAYNE Atorvastatin Calcium 40 mg 09/21/20 22:00 09/22/20 23:15 Atorvastatin 40 Mg Tab PO Not Given QHS WAYNE Carvedilol 12.5 mg 09/22/20 22:00 09/23/20 10:10 Carvedilol 12.5 Mg Tab PO 12.5 mg BID WAYNE Administration Cyclobenzaprine HCl 10 mg 09/21/20 09:00 Cyclobenzaprine 10 Mg Tab PO TID PRN Muscle Spasm Dextrose 0 ml 09/20/20 22:03 Dextrose 50% In Water (25gm) 50 Ml Syringe IV Q30MIN PRN Hypoglycemia Protocol Docusate Sodium 100 mg 09/21/20 10:00 09/23/20 10:11 Docusate Sodium 100 Mg Cap PO Not Given BID WAYNE Furosemide 40 mg 09/21/20 06:00 09/23/20 17:19 Furosemide 40 Mg/4 Ml Inj IV 40 mg BID@0600,1800 WAYNE Administration Heparin Sodium/Sodium Chloride 25,000 unit in 500 mls @ 26 mls/hr 09/22/20 22:00 09/23/20 17:25 Heparin/ 0.45% Nacl-25,000 Unit/500 Ml IV 1,100 units/hr TITR WAYNE 22 mls/hr Administration Protocol 1,300 UNITS/HR Dextrose/Sodium Chloride 1,000 mls @ 42 mls/hr 09/23/20 08:00 09/23/20 10:16 D5ns IV 09/24/20 15:00 42 mls/hr DIRECT WAYNE Administration Insulin Human Lispro 0 unit 09/21/20 07:30 09/23/20 17:19 Insulin Lispro 100 Unit/Ml SUB-Q 2 unit ACHS WAYNE Administration Protocol Morphine Sulfate 2 mg 09/20/20 22:01 09/21/20 11:13 Morphine 2 Mg/1 Ml Inj IV 2 mg Q5MIN PRN Administration Chest Pain unrelieved by NTG Nitroglycerin 0.4 mg 09/20/20 22:01 Nitroglycerin 0.4 Mg Tab Subl SL .Q5MIN PRN Chest Pain Ondansetron HCl 4 mg 09/20/20 22:03 09/21/20 22:29 Ondansetron 4 Mg/2 Ml Inj IV 4 mg Q6H PRN Administration Nausea And Vomiting Oxycodone/Acetaminophen 1 tab 09/20/20 22:03 Oxycodone /Acetaminophen 5-325mg Tab PO Q6H PRN Pain, Moderate (4-6) Potassium Chloride 10 meq 09/21/20 10:00 09/23/20 10:10 Potassium Chloride Er 10 Meq Tab PO 10 meq QDAY WAYNE Administration Sodium Chloride 10 ml 09/21/20 10:00 09/23/20 10:11 Sodium Chloride 0.9% 10 Ml Flush Syringe IV 10 ml BID WAYNE Administration Sodium Chloride 10 ml 09/20/20 22:03 Sodium Chloride 0.9% 10 Ml Flush Syringe IV PRN PRN LINE FLUSH
[2020-09-23] MEDS ORDERED: ZOLPIDEM 5 MG TAB PO PRN (21:01)
[2020-09-23] MEDS: ONDANSETRON 4 MG/2 ML INJ IV PRN (21:54)
[2020-09-24] MEDS: IPRATROPIUM/ALBUTEROL SULFATE 3 ML AMPUL.NEB IH SCH (03:08)
[2020-09-24] MEDS: FUROSEMIDE 40 MG/4 ML INJ IV SCH (05:31)
[2020-09-24] MEDS: D5W/0.9% NACL 1,000 ML IV SCH (05:51)
[2020-09-24 06:31] LABS: Hematocrit 37.7 % (35.5-45.6); Hemoglobin 12.3 gm/dl (11.8-15.2); Mean Corpuscular HGB Conc 33 % (32-34); Mean Corpuscular Volume 84 fl (84-94); Platelet Count 227 K/mm3 (140-440); Red Blood Count 4.46 M/mm3 (3.65-5.03); Red Cell Distribution Width 15.7 % (13.2-15.2)
[2020-09-24 06:38] LABS: Albumin 3.4 g/dL (3.9-5); Calcium 8.5 mg/dL (8.4-10.2)
[2020-09-24] MEDS: INSULIN LISPRO 100 UNIT/ML SUB-Q SCH ×2 (09:32→13:37)
[2020-09-24] MEDS ORDERED: ASPIRIN 81 MG TAB CHEW PO SCH (10:00)
[2020-09-24] MEDS ORDERED: FUROSEMIDE 40 MG TAB PO SCH (10:00)
[2020-09-24] MEDS: carvediloL 12.5 MG TAB PO SCH (10:03)
[2020-09-24] MEDS: POTASSIUM CHLORIDE ER 10 MEQ TAB PO SCH (10:03)
[2020-09-24] MEDS: DOCUSATE SODIUM 100 MG CAP PO SCH (10:03)
--- NOTE | 2020-09-24 12:22 | Progress Note ---
Assessment and Plan The patient is status post percutaneous mechanical thrombectomy of superior mesenteric artery thrombus. He denies any abdominal pain at this time and has not had any further bleeding per rectum or loose stools since the procedure. He had some pain with eating yesterday however that has resolved. Recommend lifelong anticoagulation. He should follow-up with me in the office in 2 weeks after discharge. Subjective Date of service: 09/24/20 Principal diagnosis: HF, SMA thrombus Interval history: The patient states he is not having abdominal pain today. He had some abdominal pain with eating yesterday however he felt that it was secondary to overeating. He has had a bowel movement since the procedure and denies any bright red blood since restarting the heparin drip. He also denies any nausea or vomiting or loose stools since the procedure. He has no additional complaints at this time. Objective - Constitutional Vitals: Vital Signs - 12hr 09/24/20 09/24/20 09/24/20 03:05 04:55 07:50 Temperature 98.3 F 98.7 F Pulse Rate 68 67 Respiratory 18 18 Rate Blood Pressure 143/83 Blood Pressure 138/72 [Right] O2 Sat by Pulse 96 93 95 Oximetry 09/24/20 09/24/20 08:57 10:03 Temperature Pulse Rate 67 Respiratory Rate Blood Pressure 138/72 Blood Pressure [Right] O2 Sat by Pulse 97 Oximetry Extremities: pulses intact (Palpable left radial pulse) - Gastrointestinal General gastrointestinal: Present: soft, non-tender, non-distended - Labs CBC & Chem 7: 09/24/20 05:48 09/24/20 05:48 Labs: Abnormal lab results 09/23/20 09/23/20 09/24/20 Range/Units 16:12 21:53 05:48 RDW 15.7 H (13.2-15.2) % Creatinine (0.8-1.3) mg/dL Glucose (75-100) mg/dL POC Glucose 186 H 154 H (70-105) mg/dL AST (5-40) units/L Albumin (3.9-5) g/dL 09/24/20 09/24/20 09/24/20 Range/Units 05:48 08:10 12:11 RDW (13.2-15.2) % Creatinine 1.8 H (0.8-1.3) mg/dL Glucose 149 H (75-100) mg/dL POC Glucose 144 H 145 H (70-105) mg/dL AST 47 H (5-40) units/L Albumin 3.4 L (3.9-5) g/dL Medications & Allergies - Medications Allergies/Adverse Reactions: Allergies No Known Allergies Allergy (Unverified 06/22/14 19:54) Home Medications: Home Medications Medication Instructions Recorded Confirmed Last Taken Type Insulin NPH/Regular [Novolin 70/30] 17 unit SQ BIDDIAB #1 vial 06/23/14 Unknown Rx Lancets [Glucocom Lancets] 1 each MC BID #1 box 06/23/14 Unknown Rx Lisinopril/Hydrochlorothiazide 1 each PO DAILY #30 tablet 06/23/14 Unknown Rx [Zestoretic 10-12.5 mg] Metoprolol [Lopressor TAB] 12.5 mg PO BID #60 tablet 06/23/14 Unknown Rx Syringe and Needle,Insulin,1Ml 1 each MC BID #1 box 06/23/14 Unknown Rx [Advocate Syringes] amLODIPine 10 mg PO DAILY #30 tab 06/23/14 Unknown Rx Amlodipine Besylate [Norvasc] 5 mg PO QDAY 30 Days #30 tablet 03/07/18 Unknown Rx Cyclobenzaprine [Flexeril] 10 mg PO TID PRN #15 tablet 03/07/18 Unknown Rx Ibuprofen [Motrin] 600 mg PO Q8H PRN #12 tablet 03/07/18 Unknown Rx carvediloL [Coreg] 25 mg PO BID 30 Days #60 tablet 03/07/18 Unknown Rx lisinopriL [Zestril TAB] 20 mg PO QDAY 30 Days #30 tablet 03/07/18 Unknown Rx Active Medications: Generic Name Dose Route Start Last Admin Trade Name Freq PRN Reason Stop Dose Admin Acetaminophen 650 mg 09/20/20 22:03 Acetaminophen 325 Mg Tab PO Q4H PRN Pain MILD(1-3)/Fever >100.5/OTT Albuterol 2.5 mg 09/20/20 22:03 Albuterol 2.5 Mg/3 Ml Nebu IH Q3HRT PRN Shortness Of Breath Apixaban 2.5 mg 09/24/20 22:00 Apixaban 2.5 Mg Tab PO Q12HR [facility] Protocol Aspirin 81 mg 09/24/20 10:00 09/24/20 10:02 Aspirin 81 Mg Tab Chew PO 81 mg QDAY WAYNE Administration Atorvastatin Calcium 40 mg 09/21/20 22:00 09/23/20 21:54 Atorvastatin 40 Mg Tab PO 40 mg QHS WAYNE Administration Carvedilol 12.5 mg 09/22/20 22:00 09/24/20 10:03 Carvedilol 12.5 Mg Tab PO 12.5 mg BID WAYNE Administration Cyclobenzaprine HCl 10 mg 09/21/20 09:00 Cyclobenzaprine 10 Mg Tab PO TID PRN Muscle Spasm Dextrose 0 ml 09/20/20 22:03 Dextrose 50% In Water (25gm) 50 Ml Syringe IV Q30MIN PRN Hypoglycemia Protocol Docusate Sodium 100 mg 09/21/20 10:00 09/24/20 10:03 Docusate Sodium 100 Mg Cap PO 100 mg BID WAYNE Administration Furosemide 40 mg 09/24/20 10:00 09/24/20 10:03 Furosemide 40 Mg Tab PO 40 mg QDAY WAYNE Administration Insulin Human Lispro 0 unit 09/21/20 07:30 09/24/20 09:32 Insulin Lispro 100 Unit/Ml SUB-Q Not Given ACHS WAYNE Protocol Morphine Sulfate 2 mg 09/20/20 22:01 09/21/20 11:13 Morphine 2 Mg/1 Ml Inj IV 2 mg Q5MIN PRN Administration Chest Pain unrelieved by NTG Nitroglycerin 0.4 mg 09/20/20 22:01 Nitroglycerin 0.4 Mg Tab Subl SL .Q5MIN PRN Chest Pain Ondansetron HCl 4 mg 09/20/20 22:03 09/23/20 21:54 Ondansetron 4 Mg/2 Ml Inj IV 4 mg Q6H PRN Administration Nausea And Vomiting Oxycodone/Acetaminophen 1 tab 09/20/20 22:03 Oxycodone /Acetaminophen 5-325mg Tab PO Q6H PRN Pain, Moderate (4-6) Potassium Chloride 10 meq 09/21/20 10:00 09/24/20 10:03 Potassium Chloride Er 10 Meq Tab PO 10 meq QDAY WAYNE Administration Sodium Chloride 10 ml 09/21/20 10:00 09/24/20 10:03 Sodium Chloride 0.9% 10 Ml Flush Syringe IV 10 ml BID WAYNE Administration Sodium Chloride 10 ml 01/25/21 22:03 Sodium Chloride 0.9% 10 Ml Flush Syringe IV PRN PRN LINE FLUSH Zolpidem Tartrate 5 mg 09/23/20 21:01 09/23/20 21:54 Zolpidem 5 Mg Tab PO 5 mg QHS PRN Administration Sleep HEART Score - HEART Score EKG: Normal Age: 45-65 Risk factors: 1-2 risk factors Troponin: Troponin T 0.157 ng/mL (0.00-0.029) H* D 09/22/20 05:17 Troponin: 1-3x normal limit
--- NOTE | 2020-09-24 12:27 | Discharge Summary ---
<MARYELLEN BURNHAMDominik - Last Filed: 09/24/20 14:17> Providers - Providers Date of Admission: 09/20/20 22:03 Attending physician: AUBREE BRIDGES 09/20/20 21:45 Consult to Physician [CONS] Urgent Comment: Consulting Provider: ROSY CABRERA Physician Instructions: Reason For Exam: chf, mild trop elevation 09/22/20 11:58 Consult to Physician [CONS] Routine Comment: Consulting Provider: CAYLA BULL Physician Instructions: Reason For Exam: GIB, superior mesentaric artery defects Consult to Physician [CONS] Urgent Comment: Consulting Provider: LOUIE MOTT Physician Instructions: Reason For Exam: GIB, superior mesentaric artery defects 09/22/20 12:14 Consult to Physician [CONS] Urgent Comment: Consulting Provider: EZEKIEL MOISE Physician Instructions: Reason For Exam: superior mesentaric artery defects on CT Primary care physician: RN WOUND CARE Hospitalization Condition: Stable Hospital course: This is a 60-year-old male with Congestive heart failure, nonobstructive CAD via [facility] in [place], AICD in situ (placed in 2017 in [place]), HTN, DM, paroxysmal atrial fibrillation (noncompliant with home Xarelto) and with noncomplience due to to relocation who presented with progressively worsening SOB, MURPHY, orthopnea, PND, abdominal swelling and 5 to 8 pound weight gain for 4 days prior to arrival on 09/20. Patient was admitted to the hospital service with acute exacerbation of congestive heart failure, elevated troponins and acute kidney injury. Cardiology, GI, vascular surgery and general surgery were consulted. On 09/22 patient had echocardiogram and was started on heparin drip later had blood-tinged bowel movement and severe abdominal pain. A CT abdomen/pelvis with oral contrast was unable to be obtained and a CT abdomen/pelvis with IV contrast showed a nonocclusive filling deficit to the superior mesenteric artery. Patient underwent a superior mesenteric artery thrombectomy vascular surgery on 09/23. Patient's initial acute kidney injury on admission resolved and then he later developed acute kidney injury again. This morning patient was to undergo a stress test with cardiology but the patient refused. Patient will need to follow-up with vascular surgery and cardiology within 1 to 2 weeks of discharge. Patient will also need to establish a primary care physician and have a visit within 1 to 2 weeks of discharge. Patient will need to follow-up with gastroenterology as outpatient within 1 to 2 weeks of discharge. Patient will be discharged with his current medical regimen and on anticoagulation with Eliquis. Medical compliance is strongly encouraged. Patient will need to follow-up with nephrology or his primary care physician within 3 to 5 days for a repeat BMP. We will provide patient with discount card for Eliquis upon discharge. Assessment and Plan Acute congestive heart failure exacerbation -Secondary to nonischemic cardiomyopathy -s/p AICD -09/20 proBNP 64414 -Cardiology consulted, appreciate recommendations -09/20 CXR shows mild congestive heart failure -Continue current cardiac regimen -09/21 echocardiogram shows left ventricular chamber size severely dilated, mild concentric left ventricular hypertrophy, global left ventricular systolic ejection fraction is severely decreased and estimated at 20 to 25%, left ventricular diastolic filling pattern is restrictive, moderate mitral valve regurgitation, evidence of moderate pulmonary hypertension and no pericardial effusion. -Patient will need to follow-up with cardiology within 1 to 2 weeks of discharge Superior mesenteric artery thrombus -09/21 patient developed severe abd cramping and noted BRBPR (per patient) however upon further investigation patient did not have BRBPR and instead he had slight blood tinge to stool -09/22 CT abd/pelvis with contrast shows multiple nonocclusive filling defects in distal branches of the superior mesenteric artery, no findings to suggest acute bowel ischemia. However, obviously, this finding does place the patient risk of future acute ischemic events. And nonobstructing right intrarenal stone with mild pulmonary edema in the visualized lung bases. -GI, Surgery and vascular surgery consulted, appreciate recommendations -09/22 occult stool pending -S/p superior mesenteric artery thrombectomy via radial artery approach with v ascular surgery -Patient was restarted on heparin drip on 09/22 and will be discharged with anticoagulation with Eliquis -Vascular surgery and gastroenterology recommends lifelong anticoagulation for a trial fibrillation and believes the patient was showering emboli from noncompliance with Eliquis. -Patient went to follow-up with vascular surgery within 2 weeks of discharge Acute kidney injury, acute -Patient presented with a creatinine/BUN of 1.7/ -On last visit 05/2014 BUN/creatinine 14/1.4 -09/21 BUN/creatinine 30/1.6, 09/22 BUN/Cr 25/1.3 -Avoid nephrotoxic medications -Daily weights -Secondary to vasomotor nephropathy -Follow-up with primary care physician or nephrology within 3 to 5 days of discharge for repeat BMP Acute respiratory failure with hypoxia, resolved -Presented with shortness of breath -Supplemental oxygen as needed -SPO2 monitoring -Likely secondary to acute CHF exacerbation Transaminitis, resolved -Admit AST 42, ALT 65 -Likely increased in the setting of acute CHF exacerbation -Discharge LFTs AST 47, ALT 36, alk phos 62, T bili 0.8 Elevated troponin -Troponin 0.224, 0.217, 0.244 -Cardiology consulted -Continue as needed nitroglycerin Paroxysmal Atrial Fibrillation -Continue current cardiac regimen -Resume anticoagulation with Eliquis -Per gastroenterology and vascular surgery patient will need lifelong anticoagulation which we will leave up to cardiology to prescribe Diabetes mellitus -09/21 hemoglobin A1c 9.3 -Per patient he has not been taking medications and attempts to control blood glucose by diet -Patient does not have a blood glucose monitor at home -Continue carb controlled cardiac diet -Blood glucose monitoring per primary care physician instructions -Follow-up with primary care physician within 1 to 2 weeks of discharge -Strongly encourage dietary changes and increasing physical activity Hypertension, chronic -Continue current cardiac regimen -Blood pressure monitor per primary care physician instructions CAD, chronic -Continue statin therapy Noncompliance chronic -Patient stated he has been out of his medications for approximately 2 months due to relocation -Patient counseled on importance of compliance with medical treatment and maintaining a PCP -CM consulted for social issues -He has been provided with a discount card for Eliquis -Counseling provided regarding noncompliance and community resources DVT/CVA prophylaxis -Anticoagulation with Eliquis Disposition: DC-01 TO HOME OR SELFCARE Time spent for discharge: 35 Core Measure Documentation - Palliative Care Palliative Care/ Comfort Measures: Not Applicable - Core Measures Any of the following diagnoses?: heart failure - Heart Failure Discharge Requirements RENEE/ARB for LVSD if EF <40%: Yes Beta luis armando at discharge: Yes Exam - Constitutional Vitals: Temp Pulse Resp BP Pulse Ox 98.7 F 67 18 138/72 97 09/24/20 07:50 09/24/20 10:03 09/24/20 07:50 09/24/20 10:03 09/24/20 08:57 General appearance: Present: no acute distress - EENT Eyes: Present: PERRL, EOM intact ENT: hearing intact, clear oral mucosa, dentition normal - Neck Neck: Present: supple, normal ROM - Respiratory Respiratory effort: normal Respiratory: bilateral: CTA - Cardiovascular Rhythm: regular Heart Sounds: Present: S1 & S2. Absent: systolic murmur, diastolic murmur - Extremities Extremities: no ischemia, pulses intact, pulses symmetrical, No edema, normal temperature, normal color, Full ROM Peripheral Pulses: within normal limits - Abdominal General gastrointestinal: Present: soft, non-tender, non-distended, normal bowel sounds - Integumentary Integumentary: Present: clear, warm, dry - Musculoskeletal Musculoskeletal: strength equal bilaterally - Psychiatric Psychiatric: appropriate mood/affect, cooperative - Neurologic Neurologic: CNII-XII intact, no focal deficits, moves all extremities - Allied Health Allied health notes reviewed: nursing, social work, case management Plan Activity: advance as tolerated Diet: low cholesterol, low salt, diabetic, low carbohydrate Special Instructions: record daily weights, record daily BP diary, record blood sugar diary Additional Instructions: Present to nearest emergency department or contact your primary care physician if you experience worsening symptoms. You will need to follow-up with your primary care physician, cardiology, gastroenterology, vascular surgery and nephrology within 1 to 2 weeks of discharge. You will be discharged with a discount card for Eliquis. You will also need to follow-up with your primary care physician or telecasting technician within 3 to 5 days for a repeat basic metabolic panel to monitor your kidney function. Follow up with: [facility] [Outside] - 7 Days [facility] [Outside] - 7 Days [facility] [Outside] - 7 Days [facility] [Outside] - 7 Days [facility] [Outside] - 7 Days DEQUAN EMERSON MD [Staff Physician] - 7 Days AIMEE VIVEROS MD [Staff Physician] - 7 Days WAYNE BELTRAN MD [Primary Care Provider] - 7 Days EZEKIEL PATTERSON MD [Staff Physician] - 7 Days DEVON HALL MD [Staff Physician] - 7 Days ROSY CABRERA MD [Staff Physician] - 7 Days YOLY BLANK MD [Staff Physician] - 7 Days EZEKIEL MOISE MD [Staff Physician] - 7 Days Prescriptions: AtorvaSTATin [Lipitor] 40 mg PO QHS #30 tablet carvediloL [Coreg] 12.5 mg PO BID #60 tablet Apixaban [Eliquis] 5 mg PO Q12HR #60 tablet Potassium Chloride [K-Dur] 10 meq PO QDAY #7 tablet Furosemide [Lasix TAB] 40 mg PO QDAY #30 tablet Nitroglycerin [Nitrostat] 0.4 mg SL .Q5MIN PRN #10 tablet PRN Reason: Chest Pain <AUBREE BRIDGES - Last Filed: 09/25/20 18:36> Providers - Providers Date of Admission: 09/20/20 22:03 Date of discharge: 09/24/20 Attending physician: AUBREE BRIDGES 09/20/20 21:45 Consult to Physician [CONS] Urgent Comment: Consulting Provider: ROSY CABRERA Physician Instructions: Reason For Exam: chf, mild trop elevation 09/22/20 11:58 Consult to Physician [CONS] Routine Comment: Consulting Provider: CAYLA BULL Physician Instructions: Reason For Exam: GIB, superior mesentaric artery defects Consult to Physician [CONS] Urgent Comment: Consulting Provider: LOUIE MOTT Physician Instructions: Reason For Exam: GIB, superior mesentaric artery defects 09/22/20 12:14 Consult to Physician [CONS] Urgent Comment: Consulting Provider: ZEEKIEL MOISE Physician Instructions: Reason For Exam: superior mesentaric artery defects on CT Primary care physician: RN WOUND CARE Hospitalization Hospital course: I have reviewed and agree with the discharge planning, discharge summary Exam - Constitutional Vitals: Temp Pulse Resp BP Pulse Ox 98.9 F 63 18 134/82 96 09/24/20 13:03 09/24/20 13:03 09/24/20 13:03 09/24/20 13:03 09/24/20 13:03
[2020-09-24 13:04] VITALS: BP 134/82
[2020-09-24 13:36] LABS: Creatinine,Urine 7.5 mg/dL (0.1-20.0)
--- NOTE | 2020-09-24 14:28 | Progress Note ---
Assessment and Plan Pt is currently declining stress testing - he wishes to post pone stress testing until he is "feeling better" and under go stress testing as OP. Currently stable cardiac status. Convert IV lasix to PO lasix 40mg daily. Convert heparin gtt to Eliquis 5mg BID. Cont all other present cardiac management. No ACEI/ARB in setting of renal insufficiency. Pt may discharge from cardiology standpoint. Follow up in our [place] office with Dr. Paty Powell on 10/08/2020 @ 1:00PM. The patient has been seen in conjunction with Dr. Paty Powell who agrees with the assessment and plan of care. - Patient Problems (1) Acute HFrEF (heart failure with reduced ejection fraction) Current Visit: Yes Status: Acute (2) NICM (nonischemic cardiomyopathy) Current Visit: Yes Status: Chronic (3) Nonobstructive atherosclerosis of coronary artery Current Visit: Yes Status: Chronic (4) Uncontrolled hypertension Current Visit: Yes Status: Chronic (5) Diabetes Current Visit: Yes Status: Chronic (6) Paroxysmal atrial fibrillation Current Visit: Yes Status: Chronic (7) TONI (acute kidney injury) Current Visit: Yes Status: Acute (8) NSTEMI (non-ST elevated myocardial infarction) Current Visit: Yes Status: Acute (9) Noncompliance with medication regimen Current Visit: Yes Status: Chronic (10) NSVT (nonsustained ventricular tachycardia) Current Visit: Yes Status: Acute (11) Automatic implantable cardioverter-defibrillator in situ Current Visit: Yes Status: Chronic (12) Mesenteric embolus Current Visit: Yes Status: Acute Subjective Date of service: 09/24/20 Principal diagnosis: HF, SMA thrombus Interval history: pt resting in bed, no current cardiac complaints. heparin gtt infusing. tele reviewed - in SR with HR 70s, 5 beat run NSVT noted overnight, pt asymptomatic. Objective Last Vital Signs Temp 98.9 F 09/24/20 13:03 Pulse 63 09/24/20 13:03 Resp 18 09/24/20 13:03 BP 134/82 09/24/20 13:03 Pulse Ox 96 09/24/20 13:03 - Physical Examination General: No Apparent Distress HEENT: Positive: PERRL, Normocephaly, Mucus Membranes Moist Neck: Positive: neck supple, trachea midline Cardiac: Positive: Reg Rate and Rhythm, S1/S2 Lungs: Positive: Decreased Breath Sounds Neuro: Positive: Grossly Intact Abdomen: Positive: Soft. Negative: Tender Skin: Negative: Rash Musculoskeletal: No Pain Extremities: Absent: edema - Labs and Meds Cardiac Enzymes 09/24/20 Range/Units 05:48 AST 47 H (5-40) units/L CBC 09/24/20 Range/Units 05:48 WBC 9.1 (4.5-11.0) K/mm3 RBC 4.46 (3.65-5.03) M/mm3 Hgb 12.3 (11.8-15.2) gm/dl Hct 37.7 (35.5-45.6) % Plt Count 227 (140-440) K/mm3 Comprehensive Metabolic Panel 09/24/20 Range/Units 05:48 Sodium 139 (137-145) mmol/L Potassium 3.8 (3.6-5.0) mmol/L Chloride 104.2 (98-107) mmol/L Carbon Dioxide 26 (22-30) mmol/L BUN 19 (9-20) mg/dL Creatinine 1.8 H (0.8-1.3) mg/dL Glucose 149 H (75-100) mg/dL Calcium 8.5 (8.4-10.2) mg/dL AST 47 H (5-40) units/L ALT 36 (7-56) units/L Alkaline Phosphatase 62 (35-129) units/L Total Protein 6.7 (6.3-8.2) g/dL Albumin 3.4 L (3.9-5) g/dL - Imaging and Cardiology EKG: report reviewed, image reviewed Echo: report reviewed ( EF 20-25%, mild LVH, restrictive diastolic filling, pacemaker wire in RV, mod MR, mod pulm HTN with RVSP 48mmHg. ) - EKG Sinus rhythms and dysrhythmias: sinus rhythm AV and intraventricular conduction: intraventricular conducti
[2020-09-24] MEDS ORDERED: APIXABAN 2.5 MG TAB PO SCH (22:00)
== END 2020-09-24 15:11 | disposition home or self-care (01) | DRG 277 ==
LOC: ED 15:45 → 4A 22:03
PROVIDERS: ADMIT Hospitalist; ATTEND Internal Medicine
PROC: 04CY3ZZ Extirpation of Matter from Lower Artery, Percutaneous Approach (ICD-10-PCS; principal; 2020-09-22)
PROC: B34JZZZ Ultrasonography of Left Upper Extremity Arteries (ICD-10-PCS; 2020-09-22)
PROC: B410YZZ Fluoroscopy of Abdominal Aorta using Other Contrast (ICD-10-PCS; 2020-09-22)
PROC: B4141ZZ Fluoroscopy of Superior Mesenteric Artery using Low Osmolar Contrast (ICD-10-PCS; 2020-09-22)
DX: I11.0 Hypertensive heart disease with heart failure (principal); N17.0 Acute kidney failure with tubular necrosis; K55.059 Acute (reversible) ischemia of intestine, part and extent unspecified; J96.01 Acute respiratory failure with hypoxia; I21.A1 Myocardial infarction type 2; I50.23 Acute on chronic systolic (congestive) heart failure; I25.10 Atherosclerotic heart disease of native coronary artery without angina pectoris; E11.9 Type 2 diabetes mellitus without complications; I48.0 Paroxysmal atrial fibrillation; I42.8 Other cardiomyopathies; R74.01 Elevation of levels of liver transaminase levels; I27.20 Pulmonary hypertension, unspecified; I47.1 Supraventricular tachycardia; M19.09 Primary osteoarthritis, other specified site; Z79.4 Long term (current) use of insulin; Z79.899 Other long term (current) drug therapy; Z95.810 Presence of automatic (implantable) cardiac defibrillator; Z87.891 Personal history of nicotine dependence; Z91.14 Patient's other noncompliance with medication regimen; Z82.49 Family history of ischemic heart disease and other diseases of the circulatory system
CPT/HCPCS: 36245; 36415; 37184; 71046; 74177; 75625; 80048; 80053; 80061; 82140; 82570; 82962; 83036; 83735; 83880; 83935; 84100; 84300; 84484; 85014; 85018; 85025; 85027; 85049; 85520; 85610; 85730; 93005; 93306; 94640; 94760; 96374; 96375; 96376; G0378; A9270-GY; C1757; C1769; C1887; C1894; J0500; J1644; J1815; J1940; J2250; J2270; J2405; J3010; J3480; J7040; J7042; Q9967

== ENCOUNTER 2020-10-19 10:03 | Emergency (ER) | payer MEDICAID ==
--- NOTE | 2020-10-19 10:27 | Event Note ---
ED Screening Note Date of service: 10/19/20 Time: 10:25 ED Screening Note: 60 yr old male with pmhx of CHF, HTN, DM, HPLD, A fib and pacemaker presents to ED with c/o dyspnea. Onset 4 days ago while cleaning oven. He reports MURPHY, orthopnea, dry cough and wheezing and generalized fatigue This initial assessment/diagnostic orders/clinical plan/treatment(s) is/are subject to change based on patients health status, clinical progression and re- assessment by fellow clinical providers in the ED. Further treatment and workup at subsequent clinical providers discretion. Patient/guardian urged not to elope from the ED as their condition may be serious if not clinically assessed and managed. Initial orders include: Dyspnea order set
[2020-10-19 10:56] LABS: Basophils # (Auto) 0.1 K/mm3 (0.0-0.1); Basophils % (Auto) 1.4 % (0.0-1.8); Eosinophils # (Auto) 0.1 K/mm3 (0.0-0.4); Eosinophils % (Auto) 1.5 % (0.0-4.3); Hematocrit 35.2 % (35.5-45.6); Hemoglobin 11.8 gm/dl (11.8-15.2); Lymphocytes # (Auto) 1.5 K/mm3 (1.2-5.4); Lymphocytes % (Auto) 24.5 % (13.4-35.0); Mean Corpuscular HGB Conc 33 % (32-34); Mean Corpuscular Volume 82 fl (84-94); Monocytes # (Auto) 0.8 K/mm3 (0.0-0.8); Monocytes % (Auto) 13.2 % (0.0-7.3); Platelet Count 205 K/mm3 (140-440); Red Blood Count 4.28 M/mm3 (3.65-5.03); Red Cell Distribution Width 15.9 % (13.2-15.2)
--- NOTE | 2020-10-19 11:04 | Emergency Department Report ---
ED Shortness of Breath HPI - General Chief Complaint: Dyspnea/Respdistress Stated Complaint: DIFFICULTY BREATHING (4DAYS) Time Seen by Provider: 10/19/20 10:19 Source: patient Mode of arrival: Wheelchair Limitations: No Limitations - History of Present Illness Initial Comments: 60-year-old male, history of CHF, hypertension, diabetes, A. fib with pacemaker, presents to the ED with shortness of breath x4 days. Patient states 4 days ago he was cleaning his oven with oven beauty parlor cleaner and inhaled the fumes. Patient states he had a coughing/choking episode at the time. Since then, patient reports it feels like he has been wheezing and having dyspnea on exertion. Patient denies any lower extremity swelling, fever, chest pain, loss of smell or taste, body aches. He denies any known exposure to anyone who is tested positive for COVID-19. Patient denies tobacco use or history of asthma. MD Complaint: shortness of breath -: days(s) Severity: moderate Consistency: constant Improves With: nothing Worsens With: nothing, exertion Context: smoke/fume exposure Treatments Prior to Arrival: none - Related Data Home Oxygen Therapy: No Previous Rx's Medication Instructions Recorded Last Taken Type Insulin NPH/Regular [NovoLIN 70/30] 17 unit SQ BIDDIAB #1 vial 06/23/14 Unknown Rx Syringe and Needle,Insulin,1Ml 1 each MC BID #1 box 06/23/14 Unknown Rx [[facility]ocate Syringes] Cyclobenzaprine [Flexeril 10 MG 10 mg PO TID PRN #15 tablet 03/07/18 Unknown Rx TAB] Acetaminophen [Acetaminophen TAB] 650 mg PO Q4H PRN tablet 09/24/20 Unknown Rx Apixaban [Eliquis] 5 mg PO Q12HR #60 tablet 09/24/20 Unknown Rx Aspirin [Aspirin BABY CHEW TAB] 81 mg PO QDAY tab.chew 09/24/20 Unknown Rx AtorvaSTATin [Lipitor] 40 mg PO QHS #30 tablet 09/24/20 Unknown Rx Docusate Sodium [Colace CAP] 100 mg PO BID capsule 09/24/20 Unknown Rx Furosemide [Lasix TAB] 40 mg PO QDAY #30 tablet 09/24/20 Unknown Rx Nitroglycerin [Nitrostat] 0.4 mg SL .Q5MIN PRN #10 tablet 09/24/20 Unknown Rx Potassium Chloride [K-Dur] 10 meq PO QDAY #7 tablet 09/24/20 Unknown Rx carvediloL [Coreg] 12.5 mg PO BID #60 tablet 09/24/20 Unknown Rx Albuterol Sulfate [Proventil Hfa] 2 puff IH Q4HR PRN #1 hfa.aer.ad 10/19/20 Unknown Rx predniSONE [Deltasone] 50 mg PO QDAY #5 tab 10/19/20 Unknown Rx Allergies Allergy/AdvReac Type Severity Reaction Status Date / Time No Known Allergies Allergy Unverified 06/22/14 19:54 ED Review of Systems ROS: Stated complaint: DIFFICULTY BREATHING (4DAYS) Other details as noted in HPI Comment: All other systems reviewed and negative Constitutional: denies: fever Respiratory: shortness of breath, wheezing. 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 - Social History Smoking Status: Never Smoker Substance Use Type: None - Medications Home Medications: Home Medications Medication Instructions Recorded Confirmed Last Taken Type Insulin NPH/Regular [NovoLIN 70/30] 17 unit SQ BIDDIAB #1 vial 06/23/14 Unknown Rx Syringe and Needle,Insulin,1Ml 1 each MC BID #1 box 06/23/14 Unknown Rx [Advocate Syringes] Cyclobenzaprine [Flexeril 10 MG 10 mg PO TID PRN #15 tablet 03/07/18 Unknown Rx TAB] Acetaminophen [Acetaminophen TAB] 650 mg PO Q4H PRN tablet 09/24/20 Unknown Rx Apixaban [Eliquis] 5 mg PO Q12HR #60 tablet 09/24/20 Unknown Rx Aspirin [Aspirin BABY CHEW TAB] 81 mg PO QDAY tab.chew 09/24/20 Unknown Rx AtorvaSTATin [Lipitor] 40 mg PO QHS #30 tablet 09/24/20 Unknown Rx Docusate Sodium [Colace CAP] 100 mg PO BID capsule 09/24/20 Unknown Rx Furosemide [Lasix TAB] 40 mg PO QDAY #30 tablet 09/24/20 Unknown Rx Nitroglycerin [Nitrostat] 0.4 mg SL .Q5MIN PRN #10 tablet 09/24/20 Unknown Rx Potassium Chloride [K-Dur] 10 meq PO QDAY #7 tablet 09/24/20 Unknown Rx carvediloL [Coreg] 12.5 mg PO BID #60 tablet 09/24/20 Unknown Rx Albuterol Sulfate [Proventil Hfa] 2 puff IH Q4HR PRN #1 hfa.aer.ad 10/19/20 Unknown Rx predniSONE [Deltasone] 50 mg PO QDAY #5 tab 10/19/20 Unknown Rx ED Physical Exam - General Limitations: No Limitations General appearance: alert, in no apparent distress - Head Head exam: Present: atraumatic, normocephalic - Eye Eye exam: Present: normal appearance, EOMI - ENT ENT exam: Present: mucous membranes moist - Neck Neck exam: Present: normal inspection - Respiratory Respiratory exam: Present: normal lung sounds bilaterally, wheezes (Occasional). Absent: respiratory distress, rales - Cardiovascular Cardiovascular Exam: Present: regular rate, normal rhythm - GI/Abdominal GI/Abdominal exam: Present: soft. Absent: distended, tenderness - Extremities Exam Extremities exam: Present: normal inspection. Absent: pedal edema, calf tenderness - Neurological Exam Neurological exam: Present: alert, oriented X3 - Psychiatric Psychiatric exam: Present: normal affect, normal mood - Skin Skin exam: Present: warm, dry, intact, normal color ED Course Vital Signs 10/19/20 10/19/20 10/19/20 10:09 11:08 11:16 Temperature 97.8 F Pulse Rate 102 H 104 H 103 H Pulse Rate [ Bilateral] Respiratory 22 29 H 17 Rate Respiratory Rate [Bilateral ] Blood Pressure 141/87 120/88 O2 Sat by Pulse 97 100 99 Oximetry 10/19/20 10/19/20 10/19/20 11:30 12:00 12:29 Temperature Pulse Rate 106 H 90 Pulse Rate [ 98 H Bilateral] Respiratory 21 18 Rate Respiratory 19 Rate [Bilateral ] Blood Pressure 120/88 120/88 O2 Sat by Pulse 100 100 Oximetry 10/19/20 10/19/20 12:30 13:00 Temperature Pulse Rate 101 H 102 H Pulse Rate [ Bilateral] Respiratory 24 18 Rate Respiratory Rate [Bilateral ] Blood Pressure 134/95 134/95 O2 Sat by Pulse 99 Oximetry - Reevaluation(s) Reevaluation #1: 10/19/20 12:51 Pt reports feeling better following neb treatment. ED Medical Decision Making - Lab Data Result diagrams: 10/19/20 10:46 10/19/20 10:46 - EKG Data -: EKG Interpreted by Me EKG shows normal: QRS complexes, ST-T waves Rate: normal - EKG Data Interpretation: LVH, other (Afib, occasional PVCs, incomplete LBBB) - Radiology Data Radiology results: report reviewed, image reviewed - Medical Decision Making 60-year-old male presents to ED with wheezing and shortness of breath for the last 4 days after inhaling oven beauty parlor cleaner fumes. O2 sats are normal on room air. Patient is in no respiratory distress. Chest x-ray is normal. EKG shows no ST changes. Patient has history of renal insufficiency, GFR essentially unchanged compared to previous admission last month. Troponin slightly elevated, likely secondary to patient's renal insufficiency, although troponin is much lower compared to last month's admission for CHF. I do not believe that patient's s ymptoms are cardiac in nature. Patient likely has a chemical pneumonitis secondary to inhaling fumes from a oven. He feels much better following a nebulizer treatment. Patient feels comfortable with discharge at this time. Will give prescription for albuterol inhaler. Outpatient follow-up advised, return precautions given. - Differential Diagnosis Pneumonitis, CHF, pneumonia Critical care attestation.: If time is entered above; I have spent that time in minutes in the direct care of this critically ill patient, excluding procedure time. ED Disposition Clinical Impression: Pneumonitis due to fumes Disposition: TO HOME OR SELFCARE Is pt being admited?: No Condition: Stable Instructions: Pneumonitis Prescriptions: predniSONE [Deltasone] 50 mg PO QDAY #5 tab Albuterol Sulfate [Proventil Hfa] 2 puff IH Q4HR PRN #1 hfa.aer.ad PRN Reason: Wheezing Referrals: PRIMARY CARE, [Primary Care Provider] - 3-5 Days [facility] [Provider Group] - 3-5 Days Time of Disposition: 12:54
[2020-10-19 11:09] LABS: INR 1.29 (0.87-1.13)
[2020-10-19 11:10] LABS: Partial Thromboplastin Time 30.1 Sec. (24.2-36.6)
[2020-10-19 11:21] LABS: Albumin 3.8 g/dL (3.9-5); Calcium 8.8 mg/dL (8.4-10.2)
--- NOTE | 2020-10-19 11:56 | XRay Report ---
CHEST 1 VIEW 10/19/2020 10:49 AM INDICATION / CLINICAL INFORMATION: Dyspnea. COMPARISON: 09/20/2020 FINDINGS: SUPPORT DEVICES: Stable position of cardiac ICD. HEART / MEDIASTINUM: No significant abnormality. LUNGS / PLEURA: No significant pulmonary or pleural abnormality. No pneumothorax. ADDITIONAL FINDINGS: No significant additional findings. IMPRESSION: 1. No acute findings. Signer Name: Jeb Ratliff MD Signed: 10/19/2020 11:51 AM Workstation Name: [id number]
[2020-10-19] MEDS ORDERED: ALBUTEROL 2.5 MG/3 ML NEBU IH ONE (12:03)
[2020-10-19] MEDS ORDERED: IPRATROPIUM 0.02% NEBU 2.5 ML IH ONE (12:03)
[2020-10-19 12:50] LABS: Chol/HDL Ratio 2.95 %
[2020-10-19] MEDS ORDERED: methylPREDNISolone Sod Succinate 125 MG/2 ML INJ IV ONE (12:50)
[2020-10-19 13:28] VITALS: BP 134/95
== END 2020-10-19 13:27 | disposition home or self-care (01) ==
LOC: ED 10:03
DX: J68.0 Bronchitis and pneumonitis due to chemicals, gases, fumes and vapors (principal); I11.0 Hypertensive heart disease with heart failure; I50.9 Heart failure, unspecified; E11.9 Type 2 diabetes mellitus without complications; Z79.899 Other long term (current) drug therapy
CPT/HCPCS: 36415; 71045; 80053; 80061; 83880; 84484; 85025; 85610; 85730; 93005; 94640; 96374; 99284; J2930; 94644

== ENCOUNTER 2022-05-20 12:29 | Emergency (ER) | payer MEDICAID ==
[2022-05-20 12:38] VITALS: BP 156/104
[2022-05-20 13:36] LABS: Basophils # (Auto) 0.1 K/mm3 (0.0-0.1); Basophils % (Auto) 0.9 % (0.0-1.8); Eosinophils # (Auto) 0.1 K/mm3 (0.0-0.4); Eosinophils % (Auto) 1.2 % (0.0-4.3); Hemoglobin 12.8 gm/dl (11.8-15.2); Lymphocytes # (Auto) 1.3 K/mm3 (1.2-5.4); Lymphocytes % (Auto) 16.7 % (13.4-35.0); Mean Corpuscular HGB Conc 32 % (32-34); Mean Corpuscular Volume 85 fl (84-94); Monocytes % (Auto) 12.1 % (0.0-7.3); Platelet Count 207 K/mm3 (140-440); Red Blood Count 4.68 M/mm3 (3.65-5.03); Red Cell Distribution Width 16.4 % (13.2-15.2)
--- NOTE | 2022-05-20 13:37 | XRay Report ---
CHEST 2 VIEWS INDICATION / CLINICAL INFORMATION: shortness of breath. COMPARISON: One view of the chest from 11/03/2020. FINDINGS: SUPPORT DEVICES: Unchanged left ICD. HEART / MEDIASTINUM: No significant abnormality. LUNGS / PLEURA: There are nonspecific bibasilar opacities. No significant pleural effusion. No pneumo thorax. ADDITIONAL FINDINGS: No significant additional findings. IMPRESSION: Nonspecific bibasilar pulmonary opacities could represent atelectasis or pneumonia. Signer Name: Marcus Louie MD Signed: 05/20/2022 1:33 PM Workstation Name: [id number]
[2022-05-20 13:58] LABS: Alanine Aminotransferase 25 units/L (7-56); Albumin 4.5 g/dL (3.9-5); BUN/Creatinine Ratio 15; Blood Urea Nitrogen 25 mg/dL (9-20); Calcium 9.5 mg/dL (8.4-10.2); Hemolysis Index 7
== END 2022-05-21 02:20 | disposition left against medical advice (07) ==
LOC: ED 12:29
DX: R06.02 Shortness of breath (principal); Z53.21 Procedure and treatment not carried out due to patient leaving prior to being seen by health care provider
CPT/HCPCS: 36415; 71046; 80053; 84484; 85025